=== PATIENT | female | born 1945 | race Caucasian/White ===

== ENCOUNTER 2016-11-24 08:55 | Inpatient (IN) | payer MEDICARE, MEDICAID ==
[~2016-11-24 08:55] MED LIST: Lactated Ringers 1,000 ML IV SCH; Lidocaine 1%/Sod Bicarbonate in NS 8.4% 1 ML Syringe PRN; Sodium Chloride 0.9% 10 ML Syringe FLUSH PRN
[2016-11-24] MEDS ORDERED: fentaNYL 250 MCG/5 ML SDV ONE (10:54)
[2016-11-24] MEDS ORDERED: Propofol 200 MG/20 ML SDV ONE (10:54)
[2016-11-24] MEDS ORDERED: Lidocaine 1% 6 ML ONE (10:55)
[2016-11-24] MEDS ORDERED: ceFAZolin 1 GM Vial ONE (10:56)
[2016-11-24] MEDS ORDERED: ePHEDrine/Normal Saline 25 MG/5 ML Syringe ONE ×3 (11:25→12:31)
[2016-11-24] MEDS: Bupivacaine 0.25% 30 ML SDV ONE ×2 (11:52→12:32)
--- NOTE | 2016-11-24 11:52 | PCM.PREANE ---
Preanesthetic Assessment - Procedure Proposed Procedure: Right total knee arthroplasty - Anesthesia/Transfusion/Family Hx Anesthesia History: Prior Anesthesia Without Reaction Transfusion History: No Prior Transfusion(s) - Review of Systems General: No Symptoms Pulmonary: No Symptoms Cardiovascular: No Symptoms Gastrointestinal: No symptoms Neurological: Difficulty Walking (due to knee pain) Other: Reports: None - Physical Assessment NPO Status Date: 11/23/16 NPO Status Time: 18:00 O2 Sat by Pulse Oximetry: 97 Respiratory Rate: 16 Vital Signs: Last Vital Signs Temp 35.9 C 11/24/16 09:00 Pulse 59 L 11/24/16 09:00 Resp 16 11/24/16 09:00 BP 136/71 11/24/16 09:00 Pulse Ox 97 11/24/16 09:00 Height: 1.47 m Weight: 70.307 kg ASA Class: 2 Mental Status: Alert & Oriented x3 Airway Class: Mallampati = 3 Dentition: Reports: Edentulous Thyro-Mental Finger Breadths: 3 Mouth Opening Finger Breadths: 3 ROM/Head Extension: Full Lungs: Clear to auscultation, Normal respiratory effort Cardiovascular: Regular Rate, Regular Rhythm, No Murmurs - Lab Values: Laboratory Last Values MRSA (PCR) Negative 11/12/16 14:40 CMP, Coags, and BMP all essentially normal - Imaging/EKG Impressions: EKG sinus rhythm with Left axis. possible LVH CXR - enlarged cardiac silhouette, no acute abnormality - Allergies Allergies/Adverse Reactions: Allergies Allergy/AdvReac Type Severity Reaction Status Date / Time No Known Allergies Allergy Verified 11/20/16 16:23 - Anesthesia Plan Beta Garry: Atenolol Med Last Dose Date: 11/24/16 Med Last Dose Time: 07:00 - Acknowledgements Anesthesia Type Planned: General Anesthesia Pt an Appropriate Candidate for the Planned Anesthesia: Yes Alternatives and Risks of Anesthesia Discussed w Pt/Guardian: Yes Pt/Guardian Understands and Agrees with Anesthesia Plan: Yes PreAnesthesia Questionnaire HEENT History: Reports: Allergic Rhinitis, Impaired Vision, Other (See Below) Other HEENT History: wears glasses, dentures Cardiovascular History: Reports: Hypertension Respiratory History: Reports: None Gastrointestinal History: Reports: None CAFETERIA CLERK History: Reports: None Musculoskeletal History: Reports: Arthritis, Osteoarthritis, Osteoporosis, Other (See Below) Other Musculoskeletal History: bilateral shoulder pain, osteopenia Neurological History: Reports: None Psychiatric History: Reports: None Endocrine/Metabolic History: Reports: Obesity/BMI 30+, Other (See Below) Other Endocrine/Metabolic History: pre-diabetes Hematologic History: Reports: None Immunologic History: Reports: None Oncologic (Cancer) History: Reports: None Dermatologic History: Reports: None - Past Surgical History Head Surgeries/Procedures: Reports: None HEENT Surgical History: Reports: Other (See Below) Other HEENT Surgeries/Procedures: eye lift GI Surgical History: Reports: None Female Surgical History: Reports: Section, Hysterectomy Oncologic Surgical History: Reports: None - SUBSTANCE USE Smoking Status *Q: Former Smoker (Quit 40 yrs ago after 1 py hx) Tobacco Use Within Last Twelve Months: No Second Hand Smoke Exposure: No Days Per Week of Alcohol Use: 0 (reports rare consumption of alcohol) Recreational Drug Use History: No - HOME MEDS Home Medications: Home Meds Atenolol [Atenolol] 25 mg PO BID 11/20/16 [History] Hydrochlorothiazide 25 mg PO DAILY 11/20/16 [History] Hydrocodone/Acetaminophen [Hydrocodon-Acetaminophen 5-325] 1 tab PO TID PRN [History] Lisinopril [Zestril] 40 mg PO DAILY 11/20/16 [History] Naproxen [Naprosyn] 375 mg PO Q12H PRN 11/20/16 [History] - CURRENT (IN HOUSE) MEDS Current Meds: Current Medications Aspirin (Ecotrin) 325 mg PO BID RAZA Bisacodyl (Dulcolax) 5 mg PO DAILY PRN PRN Reason: Constipation Cyclobenzaprine HCl (Flexeril) 10 mg PO TID PRN PRN Reason: Spasms Diphenhydramine HCl (Benadryl) 25 mg IVPUSH Q4H PRN PRN Reason: Nausea Docusate Sodium (Colace) 100 mg PO BID RAZA Famotidine (Pepcid) 20 mg PO BID RAZA Lactated Ringer's (Ringers, Lactated) 1,000 mls @ 125 mls/hr IV ASDIRECTED RAZA Stop: 11/24/16 23:00 Last Admin: 11/24/16 09:35 Dose: 125 mls/hr Cefazolin Sodium/Dextrose 2 gm (/ Premix) 50 mls @ 100 mls/hr IV Q8H RAZA Stop: 11/25/16 10:29 Lidocaine/Sodium Bicarbonate (Buffered Lidocaine 1% In Ns 8.4%) 0.25 ml .XX ONETIME PRN PRN Reason: Prior to IV Start Stop: 11/24/16 18:00 Last Admin: 11/24/16 09:34 Dose: 0.25 ml Magnesium Hydroxide (Milk Of Magnesia) 30 ml PO BID PRN PRN Reason: Constipation Morphine Sulfate (Morphine) 2 mg IVPUSH Q2H PRN PRN Reason: Breakthrough Pain Multivitamins (Thera) 1 each PO WITHBREAKFAST [facility] Naloxone HCl (Narcan) 0.1 mg IVPUSH Q5M PRN PRN Reason: Oversedation Stop: 11/24/16 13:16 Ondansetron HCl (Zofran) 4 mg IVPUSH Q6H PRN PRN Reason: Nausea/Vomiting Oxycodone/Acetaminophen (Percocet 325-5 Mg) 1 - 2 tab PO Q4H PRN PRN Reason: Pain Senna (Senna) 8.6 mg PO BID PRN PRN Reason: Constipation Sodium Chloride (Saline Flush) 10 ml FLUSH ASDIRECTED PRN PRN Reason: Keep Vein Open Stop: 11/24/16 18:00 Discontinued Medications Bupivacaine HCl (Marcaine 0.25%) Confirm Administered Dose 30 ml .ROUTE .STK- MED ONE Stop: 11/24/16 09:33 Cefazolin Sodium (Ancef) Confirm Administered Dose 2 gm .ROUTE .STK-MED ONE Stop: 11/24/16 09:33 Cefazolin Sodium (Ancef) Confirm Administered Dose 2 gm .ROUTE .STK-MED ONE Stop: 11/24/16 10:57 Morphine Sulfate 8 mg/Epinephrine HCl 0.3 mg/Cefuroxime Sodium 750 mg/Ketorolac Tromethamine 30 mg/Sodium Chloride 27.9 ml 0 mg .XX ONETIME ONE Stop: 11/24/16 10:31 Ephedrine Sulfate (Ephedrine In Ns) Confirm Administered Dose 25 mg .ROUTE .STK- MED ONE Stop: 11/24/16 11:26 Ephedrine Sulfate (Ephedrine In Ns) Confirm Administered Dose 25 mg .ROUTE .STK- MED ONE Stop: 11/24/16 11:33 Fentanyl (Sublimaze) Confirm Administered Dose 250 mcg .ROUTE .STK-MED ONE Stop: 11/24/16 10:55 Lidocaine HCl (Xylocaine-Mpf 1%) Confirm Administered Dose 6 mls @ as directed .ROUTE .STK-MED ONE Stop: 11/24/16 10:56 Iodine (Iodine 2% Mild Tincture) Confirm Administered Dose 30 ml .ROUTE .STK- MED ONE Stop: 11/24/16 09:33 Propofol (Diprivan 20 Ml) Confirm Administered Dose 200 mg .ROUTE .STK-MED ONE Stop: 11/24/16 10:55 Tranexamic Acid (Cyklokapron) Confirm Administered Dose 1,000 mg .ROUTE .STK- MED ONE Stop: 11/24/16 09:33
[2016-11-24] MEDS: ceFAZolin 1 GM Vial ONE ×2 (11:53→12:29)
[2016-11-24] MEDS: Iodine/Sodium Iodide 2% Tincture 30 ML Bottle ONE ×2 (11:54→12:28)
[2016-11-24] MEDS ORDERED: HYDROmorphone 1 MG/ML Syringe ONE (11:54)
[2016-11-24] MEDS: Morphine 8 MG, EPINEPHrine 0.3 MG, Cefuroxime 750 MG, Ketorolac 30 MG, Sodium Chloride ... ONE ×10 (11:57→12:31)
[2016-11-24] MEDS ORDERED: Neostigmine Methylsulfate 1 MG/ML 5 ML Syringe ONE (12:36)
[2016-11-24] MEDS ORDERED: Ondansetron 4 MG/2 ML SDV ONE (12:37)
[2016-11-24] MEDS ORDERED: Ketamine 500 mg/10 ML MDV ONE (12:38)
[2016-11-24] MEDS ORDERED: Ondansetron 4 MG/2 ML SDV IVPUSH PRN ×2 (13:00→13:35)
[2016-11-24] MEDS ORDERED: Naloxone 0.4 MG/ML SDV IVPUSH PRN (13:00)
[2016-11-24] MEDS ORDERED: Sennosides 8.6 MG Tab PO PRN (13:00)
[2016-11-24] MEDS ORDERED: diphenhydrAMINE 50 MG/ML SDV IVPUSH PRN ×2 (13:00→13:35)
[2016-11-24] MEDS ORDERED: Magnesium Hydroxide 400 MG/5 ML Susp 30 ML Cup PO PRN (13:00)
[2016-11-24] MEDS ORDERED: Bisacodyl 5 MG Tab PO PRN (13:00)
[2016-11-24] MEDS ORDERED: Albuterol 6.7 GM Inhaler INH ONE (13:10)
[2016-11-24] MEDS ORDERED: Ketorolac 30 MG/ML SDV ONE (13:19)
[2016-11-24] MEDS ORDERED: fentaNYL 100 MCG/2 ML SDV ONE ×2 (13:26→13:35)
[2016-11-24] MEDS: fentaNYL 100 MCG/2 ML SDV IVPUSH PRN ×2 (13:31→13:41)
--- NOTE | 2016-11-24 13:38 | PCM.POSTAN ---
POST ANESTHESIA ASSESSMENT - MENTAL STATUS Mental Status: other (drowsy) - VITAL SIGNS Pulse Rate: 74 SaO2: 98 Resp Rate: 10 Blood Pressure: 121/56 Temperature: 98.4 C - RESPIRATORY Respiratory Status: respiratory rate WNL, airway patent, O2 saturation stable - CARDIOVASCULAR CV Status: pulse rate WNL, blood pressure stable - GASTROINTESTINAL GI Status: no symptoms - PAIN Pain Score: 5 (being managed by Rns) - POST OP HYDRATION Hydration Status: adequate & stable
[2016-11-24] MEDS ORDERED: Lactated Ringers 3,000 ML ONE (13:50)
--- NOTE | 2016-11-24 14:06 | CR ---
Right knee: AP and lateral views of the right knee were obtained. Comparison: Previous right knee study of 10/01/16. Knee prosthesis is seen. Components are aligned. Underlying bony structures are intact. Soft tissue air is noted from the surgical procedure. Air also seen within the joint compatible with the surgical procedure. Impression: 1. Satisfactory appearance of recently placed right knee prosthesis. Diagnostic code #2
[2016-11-24] MEDS ORDERED: HYDROmorphone 0.5 MG/0.5 ML Syringe IVPUSH PRN (14:30)
[2016-11-24] MEDS: Acetaminophen/oxyCODONE 325-5 MG Tab PO PRN ×2 (15:31→20:23)
--- NOTE | 2016-11-24 16:17 | PCM.CONSN ---
- General Info Date of Service: 11/24/16 Admission Dx/Problem (Free Text): 71 year old female S/P right total knee arthroplasty; previously cortisone injections were used to address her bilateral knee discomfort. The patient was seen by ortho for persistent biateral knee pain. The hospitalist service has been asked to provide consultation for medical management. Functional Status: Reports: pain controlled, urinating - Review of Systems General: Reports: No Symptoms HEENT: Reports: no symptoms Pulmonary: Reports: no symptoms Cardiovascular: Reports: No Symptoms Gastrointestinal: Reports: No symptoms Genitourinary: Reports: no symptoms Musculoskeletal: Reports: no symptoms Skin: Reports: no symptoms Neurological: Reports: No Symptoms Psychiatric: Reports: no symptoms - Patient Data Vitals - most recent: Last Vital Signs Temp 36.4 C 11/24/16 14:23 Pulse 55 L 11/24/16 16:02 Resp 13 11/24/16 14:23 BP 124/56 L 11/24/16 16:02 Pulse Ox 96 11/24/16 16:02 Weight - most recent: 74.435 kg I&O - last 24 hours: Intake & Output 11/24/16 11/24/16 11/24/16 06:59 14:59 22:59 Intake Total 200 Balance 200 Med Orders - Current: Current Medications Aspirin (Ecotrin) 325 mg PO BID RAZA Atenolol (Tenormin) 25 mg PO BID RAZA Bisacodyl (Dulcolax) 5 mg PO DAILY PRN PRN Reason: Constipation Cyclobenzaprine HCl (Flexeril) 10 mg PO TID PRN PRN Reason: Spasms Diphenhydramine HCl (Benadryl) 25 mg IVPUSH Q4H PRN PRN Reason: Nausea Diphenhydramine HCl (Benadryl) 25 mg IVPUSH Q6H PRN PRN Reason: pruritis Docusate Sodium (Colace) 100 mg PO BID RAZA Famotidine (Pepcid) 20 mg PO BID RAZA Fentanyl (Sublimaze) 50 mcg IVPUSH Q5M PRN PRN Reason: Pain Stop: 11/24/16 18:00 Last Admin: 11/24/16 13:41 Dose: 50 mcg Hydrochlorothiazide (Hydrochlorothiazide) 25 mg PO DAILY RAZA Lactated Ringer's (Ringers, Lactated) 1,000 mls @ 125 mls/hr IV ASDIRECTED [facility] Stop: 11/24/16 23:00 Last Admin: 11/24/16 09:35 Dose: 125 mls/hr Cefazolin Sodium/Dextrose 2 gm (/ Premix) 50 mls @ 100 mls/hr IV Q8H [facility] Stop: 11/25/16 10:29 Lisinopril (Prinivil) 40 mg PO DAILY [facility] Magnesium Hydroxide (Milk Of Magnesia) 30 ml PO BID PRN PRN Reason: Constipation Morphine Sulfate (Morphine) 2 mg IVPUSH Q2H PRN PRN Reason: Breakthrough Pain Multivitamins (Thera) 1 each PO WITHBREAKFAST [facility] Ondansetron HCl (Zofran) 4 mg IVPUSH Q6H PRN PRN Reason: Nausea/Vomiting Ondansetron HCl (Zofran) 4 mg IVPUSH ONETIME PRN PRN Reason: Nausea/Vomiting Stop: 11/24/16 18:00 Oxycodone/Acetaminophen (Percocet 325-5 Mg) 1 - 2 tab PO Q4H PRN PRN Reason: Pain Last Admin: 11/24/16 15:31 Dose: 2 tab Senna (Senna) 8.6 mg PO BID PRN PRN Reason: Constipation Sodium Chloride (Saline Flush) 10 ml FLUSH ASDIRECTED PRN PRN Reason: Keep Vein Open Stop: 11/24/16 18:00 Discontinued Medications Albuterol (Proventil Hfa) Confirm Administered Dose 6.7 gm INH .STK-MED ONE Stop: 11/24/16 13:11 Bupivacaine HCl (Marcaine 0.25%) Confirm Administered Dose 30 ml .ROUTE .STK- MED ONE Stop: 11/24/16 09:33 Last Admin: 11/24/16 12:32 Dose: 30 ml Cefazolin Sodium (Ancef) Confirm Administered Dose 2 gm .ROUTE .STK-MED ONE Stop: 11/24/16 09:33 Last Admin: 11/24/16 12:29 Dose: 2 gm Cefazolin Sodium (Ancef) Confirm Administered Dose 2 gm .ROUTE .STK-MED ONE Stop: 11/24/16 10:57 Morphine Sulfate 8 mg/Epinephrine HCl 0.3 mg/Cefuroxime Sodium 750 mg/Ketorolac Tromethamine 30 mg/Sodium Chloride 27.9 ml 0 mg .XX ONETIME ONE Stop: 11/24/16 10:31 Last Admin: 11/24/16 12:31 Dose: 788.3 mg Ephedrine Sulfate (Ephedrine In Ns) Confirm Administered Dose 25 mg .ROUTE .STK- MED ONE Stop: 11/24/16 11:26 Ephedrine Sulfate (Ephedrine In Ns) Confirm Administered Dose 25 mg .ROUTE .STK- MED ONE Stop: 11/24/16 11:33 Ephedrine Sulfate (Ephedrine In Ns) Confirm Administered Dose 50 mg .ROUTE .STK- MED ONE Stop: 11/24/16 12:32 Fentanyl (Sublimaze) Confirm Administered Dose 250 mcg .ROUTE .STK-MED ONE Stop: 11/24/16 10:55 Fentanyl (Sublimaze) Confirm Administered Dose 100 mcg .ROUTE .STK-MED ONE Stop: 11/24/16 13:27 Fentanyl (Sublimaze) Confirm Administered Dose 100 mcg .ROUTE .STK-MED ONE Stop: 11/24/16 13:36 Glycopyrrolate () Confirm Administered Dose 1 mg .ROUTE .STK-MED ONE Stop: 11/24/16 12:37 Hydromorphone HCl (Dilaudid) Confirm Administered Dose 1 mg .ROUTE .STK-MED ONE Stop: 11/24/16 11:55 Hydromorphone HCl (Dilaudid) 0.5 mg IVPUSH Q15M PRN PRN Reason: severe pain Stop: 11/24/16 14:46 Last Admin: 11/24/16 14:05 Dose: 0.5 mg Lidocaine HCl (Xylocaine-Mpf 1%) Confirm Administered Dose 6 mls @ as directed .ROUTE .STK-MED ONE Stop: 11/24/16 10:56 Lactated Ringer's (Ringers, Lactated) Confirm Administered Dose 3,000 mls @ as directed .ROUTE .STK-MED ONE Stop: 11/24/16 13:51 Iodine (Iodine 2% Mild Tincture) Confirm Administered Dose 30 ml .ROUTE .STK- MED ONE Stop: 11/24/16 09:33 Last Admin: 11/24/16 12:28 Dose: 30 ml Ketamine HCl (Ketalar) Confirm Administered Dose 500 mg .ROUTE .STK-MED ONE Stop: 11/24/16 12:39 Ketorolac Tromethamine (Toradol) Confirm Administered Dose 30 mg .ROUTE .STK- MED ONE Stop: 11/24/16 13:20 Lidocaine/Sodium Bicarbonate (Buffered Lidocaine 1% In Ns 8.4%) 0.25 ml .XX ONETIME PRN PRN Reason: Prior to IV Start Stop: 11/24/16 18:00 Last Admin: 11/24/16 09:34 Dose: 0.25 ml Naloxone HCl (Narcan) 0.1 mg IVPUSH Q5M PRN PRN Reason: Oversedation Stop: 11/24/16 13:16 Neostigmine Methylsulfate (Neostigmine) Confirm Administered Dose 5 mg .ROUTE .STK-MED ONE Stop: 11/24/16 12:37 Ondansetron HCl (Zofran) Confirm Administered Dose 4 mg .ROUTE .STK-MED ONE Stop: 11/24/16 12:38 Propofol (Diprivan 20 Ml) Confirm Administered Dose 200 mg .ROUTE .STK-MED ONE Stop: 11/24/16 10:55 Tranexamic Acid (Cyklokapron) Confirm Administered Dose 1,000 mg .ROUTE .STK- MED ONE Stop: 11/24/16 09:33 Last Admin: 11/24/16 12:36 Dose: 1,000 mg - Exam Quality Assessment: urine catheter, DVT prophylaxis General: alert, oriented, cooperative, no acute distress HEENT: Pupils equal, Pupils reactive, EOMI Neck: supple, trachea midline Lungs: Normal respiratory effort, Decreased breath sounds Cardiovascular: Regular Rate, Regular Rhythm Abdomen: bowel sounds present, soft, no tenderness, no distension (Female) Exam: Deferred Back Exam: Normal Inspection Extremities: normal pulses Skin: warm Neurological: no new focal deficit Psy/Mental Status: alert, normal affect, normal mood Consult PN Assessment/Plan POD#: 0 Procedures: Procedures ASSAY OF FERRITIN (11/06/16) ASSAY OF PREALBUMIN (11/06/16) ASSAY OF SERUM ALBUMIN (11/06/16) ASSAY THYROID STIM HORMONE (10/01/16) CHEST X-RAY 2VW FRONTAL&LATL (11/06/16) COMPLETE CBC W/AUTO DIFF WBC (11/06/16) DXA BONE DENSITY AXIAL (10/16/16) GLYCOSYLATED HEMOGLOBIN TEST (10/01/16) LIPID PANEL (10/01/16) METABOLIC PANEL TOTAL CA (11/06/16) PROTHROMBIN TIME (11/06/16) ROUTINE VENIPUNCTURE (11/06/16) THROMBOPLASTIN TIME PARTIAL (11/06/16) VITAMIN D 25 HYDROXY (11/06/16) X-RAY EXAM KNEE 4 OR MORE (10/01/16) (1) Osteoarthritis SNOMED Code(s): 180386501 Code(s): M19.90 - UNSPECIFIED OSTEOARTHRITIS, UNSPECIFIED SITE Current Visit: Yes (2) Obesity (BMI 30-39.9) SNOMED Code(s): 333482935, 880423770 Code(s): E66.9 - OBESITY, UNSPECIFIED Current Visit: Yes (3) Hypertension SNOMED Code(s): 33789350 Code(s): I10 - ESSENTIAL (PRIMARY) HYPERTENSION Current Visit: Yes Problem List Initiated/Reviewed/Updated: Yes Plan: Impression: Right knee osteoarthritis s/p right total knee arthroplasty, POD 0 HTN Obesity, BMI 34.3 Plan: Daily Labs Home meds Pain mgt PT/OT/SW consults DVT prophylaxis
[2016-11-24] MEDS: Morphine 2 MG/ML Syringe IVPUSH PRN (17:29)
[2016-11-24] MEDS: ceFAZolin 2 GM in Premix Bag 1 BAG IV SCH (17:38)
[2016-11-24] MEDS: Docusate Sodium 100 MG Cap PO SCH (20:22)
[2016-11-24] MEDS: Famotidine 20 MG Tab PO SCH (20:22)
[2016-11-24] MEDS: Atenolol 25 MG Tab PO SCH (20:26)
--- NOTE | 2016-11-24 21:55 | PCM.OPNOTE ---
- General Post-Op/Procedure Note Date of Surgery/Procedure: 11/24/16 Operative Procedure(s): right total knee arthroplasty Pre Op Diagnosis: right knee osteoarthrosis Post-Op Diagnosis: Same Anesthesia Technique: General ET tube, Local Primary Surgeon: Ab Chapa Anesthesia Provider: Ann Marie Broderick [employer] Boards Inspector: Romi Licona [employer] Boards Inspector: Willow Moore EBL in mLs: 150 Complications: None Condition: Good Free Text/Narrative:: Intake & Output 11/24/16 11/24/16 11/24/16 06:59 14:59 22:59 Intake Total 200 1420 Balance 200 1420
--- NOTE | 2016-11-24 22:28 | OR ---
DATE OF OPERATION: 11/24/2016 SURGEON: Ab Chapa MD OPERATION PERFORMED: Right total knee arthroplasty. PREOPERATIVE DIAGNOSIS: Right knee osteoarthrosis. POSTOPERATIVE DIAGNOSIS: Right knee osteoarthrosis. ANESTHESIA: Local MAC with spinal. ANESTHESIA PROVIDER: Ann Marie Broderick. ASSISTANTS: Romi Licona PA-C and Willow Moore LPN. ESTIMATED BLOOD LOSS: 150 mL. COMPLICATIONS: None. CONDITION: Stable. IMPLANTS: 1. Woodworth size 3 PS femur. 2. Woodworth size 2 universal tibial base plate. 3. Osmany size 2 9-mm PS X3 polyethylene. 4. 27 x 8 mm concentric Woodworth patella. DESCRIPTION OF PROCEDURE: The patient was identified in the preop holding area. Proper site was marked and identified by the surgeon. The patient was taken back to the operating theater. After adequate anesthesia, the patient's right lower extremity had a nonsterile tourniquet applied and it was then sterilely prepped and draped in the usual sterile fashion. OR timeout was performed. The patient received 2 g IV Ancef. At this time, right lower extremity was exsanguinated. Tourniquet was insufflated to 300 mmHg. Standard medial parapatellar incision was made. Medial parapatellar arthrotomy was created. Deep fibers of the MCL were raised and anterior fat pad was resected. At this time, attention was turned to the patella. Patella measured 21, it was resected to a 13 for a 27 x 8 mm patella. Drill holes were then drilled and found to be in adequate position. The drill was then drilled in the distal femur and the intramedullary distal femoral cutting guide was then placed. 8 mm was resected off the distal femur and was found to be an adequate resection. Sizing guide was placed. It was found to be a size 3 PS femur that was shown on the implant record at the beginning of this dictation. The drill holes were drilled for the epicondylar axis using Whitesides line and epicondyles as reference. At this time, the 4-in-1 cutting block was placed. An anterior posterior and anterior and posterior chamfer cuts were then completed. The correct size box cut was then placed and the box cut was completed and found to be an adequate resection. Attention was turned to the tibia. The posterior medial lateral retractors were placed. The extramedullary tibial guide was placed. It was placed in the old footprint of the ACL. It was aligned with the center of the ankle and 0 degrees of slope, 9 mm was then resected off the unaffected lateral side. There was found to be an acceptable reduction. At this time, posterior osteophytes were removed along with medial and lateral meniscus. A trial implant was placed with a correct sized tibia that was mentioned at the beginning of the dictation. A 9-mm trial spacer was trialed and a 9-mm X3 polyethylene was then placed. The patient's knee was brought through range of motion. The patella was tracking centrally and was stable to varus and valgus stress. Alignment was found to be roughly at 0 degrees. At this time, cement was mixed on the back table. The tibia was stamped and drilled in proper rotation. All cut surfaces were irrigated with pulse lavage irrigation with Ancef and then completely dried. Once this was completed, then the cement was ready. The universal tibial base plate was cemented in place. Next, the size 3 PS femur cemented into place and the 9-mm X3 polyethylene was placed. The patient's knee was brought into full extension. Excess cement was removed. The patella was then cemented in place at this time. Tourniquet was deflated. One liter dilute Betadine solution was irrigated through the knee along with 3 L of pulse lavage irrigation with Ancef. Periarticular injection was then completed. The patient's knee was brought through a range of motion. Once the cement had time to set up and it was found to be stable to varus valgus stress, the patella was tracking centrally with full range of motion. At this time, a #2 barbed suture was used for closure of the medial parapatellar arthrotomy. Topical tranexamic acid was placed. 2-0 Vicryl was used subcutaneously, a running 3-0 Monocryl was used subcuticularly. The patient tolerated the procedure well and was sent to the PACU in stable condition. MMADALID /[id number]
[2016-11-25] MEDS: Morphine 2 MG/ML Syringe IVPUSH PRN
[2016-11-25] MEDS: ceFAZolin 2 GM in Premix Bag 1 BAG IV SCH ×2 (02:25→09:20)
[2016-11-25] MEDS: Acetaminophen/oxyCODONE 325-5 MG Tab PO PRN ×5 (04:10→20:39)
[2016-11-25] MEDS: Multivitamins,Therapeutic Tab PO SCH (06:26)
--- NOTE | 2016-11-25 08:23 | PCM48HPAN ---
Post Anesthesia Note - EVALUATION WITHIN 48HRS OF ANESTHETIC Vital Signs in Normal Range: Yes Patient Participated in Evaluation: Yes Respiratory Function Stable: Yes Airway Patent: Yes Cardiovascular Function Stable: Yes Hydration Status Stable: Yes Pain Control Satisfactory: Yes Nausea and Vomiting Control Satisfactory: Yes Mental Status Recovered: Yes - COMMENTS/OBSERVATIONS Free Text/Narrative:: Patient difficult to asses due to [place] speaking only but denied and back pain , headaches. Said she is able to ambulate in her room. Just c/o some tolerable knee pain.
[2016-11-25] MEDS: Aspirin 325 MG Tab.EC PO SCH ×2 (09:18→20:32)
[2016-11-25] MEDS: Docusate Sodium 100 MG Cap PO SCH ×2 (09:19→20:32)
[2016-11-25] MEDS: Lisinopril 20 MG Tab PO SCH (09:19)
[2016-11-25] MEDS: Atenolol 25 MG Tab PO SCH ×3 (09:19→20:42)
[2016-11-25] MEDS: Hydrochlorothiazide 25 MG Tab PO SCH (09:19)
[2016-11-25] MEDS: Famotidine 20 MG Tab PO SCH (09:25)
[2016-11-25] MEDS ORDERED: Potassium Chloride 20 MEQ Tab.ER PO ONE (09:36)
--- NOTE | 2016-11-25 09:47 | PCM.PN ---
- General Info Date of Service: 11/25/16 Admission Dx/Problem (Free Text): S/P Rt TKA, with Dr. Chapa, POD #1 Doing well, pain controlled, no nausea VSS Hgb 10.8 Working with PT/OT- doing well. Functional Status: Reports: pain controlled, tolerating diet, ambulating, urinating. Denies: new symptoms - Review of Systems General: Reports: No Symptoms HEENT: Reports: no symptoms Pulmonary: Reports: no symptoms Cardiovascular: Reports: No Symptoms Gastrointestinal: Reports: No symptoms Genitourinary: Reports: no symptoms Musculoskeletal: Reports: leg pain Skin: Reports: no symptoms Neurological: Reports: No Symptoms Psychiatric: Reports: no symptoms - Patient Data Vitals - most recent: Last Vital Signs Temp 98.4 F 11/25/16 08:46 Pulse 74 11/25/16 09:19 Resp 20 11/25/16 08:46 BP 102/54 L 11/25/16 09:19 Pulse Ox 92 L 11/25/16 08:46 Weight - most recent: 163 lb 8 oz I&O - last 24 hours: Intake & Output 11/24/16 11/25/16 11/25/16 22:59 06:59 14:59 Intake Total 1420 900 Output Total 400 250 Balance 1420 500 -250 Lab Results last 24 hrs: Laboratory Results - last 24 hr 11/25/16 11/25/16 Range/Units 06:21 06:21 WBC 9.80 (3.98-10.04) K/mm3 RBC 3.91 L (3.98-5.22) M/mm3 Hgb 10.8 L (11.2-15.7) gm/L Hct 33.2 L (34.1-44.9) % MCV 84.9 (79.4-94.8) fl MCH 27.6 (25.6-32.2) pg MCHC 32.5 (32.2-35.5) g/dl RDW Std Deviation 44.3 (36.4-46.3) fL Plt Count 213 (182-369) K/mm3 MPV 10.1 (9.4-12.3) fl Neut % (Auto) 72.9 H (34.0-71.1) % Lymph % (Auto) 15.2 L (19.3-51.7) % [place] % (Auto) 9.6 (4.7-12.5) % Eos % (Auto) 1.8 (0.7-5.8) Baso % (Auto) 0.3 (0.1-1.2) % Neut # (Auto) 7.14 H (1.56-6.13) K/mm3 Lymph # (Auto) 1.49 (1.18-3.74) K/mm3 [place] # (Auto) 0.94 H (0.24-0.36) K/mm3 Eos # (Auto) 0.18 (0.04-0.36) K/mm3 Baso # (Auto) 0.03 (0.01-0.08) K/mm3 Sodium 141 (136-145) mEq/L Potassium 3.2 L (3.5-5.1) mEq/L Chloride 104 (98-107) mEq/L Carbon Dioxide 28 (21-32) mEq/L Anion Gap 12.2 (5-15) BUN 19 H (7-18) mg/dL Creatinine 1.0 (0.55-1.02) mg/dL Est Cr Clr Drug Dosing 37.60 mL/min Estimated GFR (MDRD) 55 (>60) mL/min BUN/Creatinine Ratio 19.0 H (14-18) Glucose 135 H (80-115) mg/dL Calcium 8.5 (8.5-10.1) mg/dL Total Bilirubin 0.4 (0.2-1.0) mg/dL AST 28 (15-37) U/L ALT 17 (14-59) U/L Alkaline Phosphatase 57 (46-116) U/L Total Protein 6.6 (6.4-8.2) g/dl Albumin 2.9 L (3.4-5.0) g/dl Globulin 3.7 gm/dL Albumin/Globulin Ratio 0.8 L (1-2) Med Orders - Current: Current Medications Aspirin (Ecotrin) 325 mg PO BID [facility] Last Admin: 11/25/16 09:18 Dose: 325 mg Atenolol (Tenormin) 25 mg PO BID [facility] Last Admin: 11/25/16 09:19 Dose: 25 mg Bisacodyl (Dulcolax) 5 mg PO DAILY PRN PRN Reason: Constipation Cyclobenzaprine HCl (Flexeril) 10 mg PO TID PRN PRN Reason: Spasms Diphenhydramine HCl (Benadryl) 25 mg IVPUSH Q4H PRN PRN Reason: Nausea Docusate Sodium (Colace) 100 mg PO BID [facility] Last Admin: 11/25/16 09:19 Dose: 100 mg Famotidine (Pepcid) 20 mg PO DAILY [facility] Hydrochlorothiazide (Hydrochlorothiazide) 25 mg PO DAILY [facility] Last Admin: 11/25/16 09:19 Dose: 25 mg Cefazolin Sodium/Dextrose 2 gm (/ Premix) 50 mls @ 100 mls/hr IV Q8H [facility] Stop: 11/25/16 10:29 Last Admin: 11/25/16 09:20 Dose: 100 mls/hr Lisinopril (Prinivil) 40 mg PO DAILY [facility] Last Admin: 11/25/16 09:19 Dose: 40 mg Magnesium Hydroxide (Milk Of Magnesia) 30 ml PO BID PRN PRN Reason: Constipation Morphine Sulfate (Morphine) 2 mg IVPUSH Q2H PRN PRN Reason: Breakthrough Pain Last Admin: 11/24/16 17:29 Dose: 2 mg Multivitamins (Thera) 1 each PO WITHBREAKFAST [facility] Last Admin: 11/25/16 06:26 Dose: 1 each Ondansetron HCl (Zofran) 4 mg IVPUSH Q6H PRN PRN Reason: Nausea/Vomiting Oxycodone/Acetaminophen (Percocet 325-5 Mg) 1 - 2 tab PO Q4H PRN PRN Reason: Pain Last Admin: 11/25/16 09:23 Dose: 2 tab Senna (Senna) 8.6 mg PO BID PRN PRN Reason: Constipation Discontinued Medications Albuterol (Proventil Hfa) Confirm Administered Dose 6.7 gm INH .STK-MED ONE Stop: 11/24/16 13:11 Bupivacaine HCl (Marcaine 0.25%) Confirm Administered Dose 30 ml .ROUTE .STK- MED ONE Stop: 11/24/16 09:33 Last Admin: 11/24/16 12:32 Dose: 30 ml Cefazolin Sodium (Ancef) Confirm Administered Dose 2 gm .ROUTE .STK-MED ONE Stop: 11/24/16 09:33 Last Admin: 11/24/16 12:29 Dose: 2 gm Cefazolin Sodium (Ancef) Confirm Administered Dose 2 gm .ROUTE .STK-MED ONE Stop: 11/24/16 10:57 Morphine Sulfate 8 mg/Epinephrine HCl 0.3 mg/Cefuroxime Sodium 750 mg/Ketorolac Tromethamine 30 mg/Sodium Chloride 27.9 ml 0 mg .XX ONETIME ONE Stop: 11/24/16 10:31 Last Admin: 11/24/16 12:31 Dose: 788.3 mg Diphenhydramine HCl (Benadryl) 25 mg IVPUSH Q6H PRN PRN Reason: pruritis Ephedrine Sulfate (Ephedrine In Ns) Confirm Administered Dose 25 mg .ROUTE .STK- MED ONE Stop: 11/24/16 11:26 Ephedrine Sulfate (Ephedrine In Ns) Confirm Administered Dose 25 mg .ROUTE .STK- MED ONE Stop: 11/24/16 11:33 Ephedrine Sulfate (Ephedrine In Ns) Confirm Administered Dose 50 mg .ROUTE .STK- MED ONE Stop: 11/24/16 12:32 Famotidine (Pepcid) 20 mg PO BID [facility] Last Admin: 11/25/16 09:25 Dose: Not Given Fentanyl (Sublimaze) Confirm Administered Dose 250 mcg .ROUTE .STK-MED ONE Stop: 11/24/16 10:55 Fentanyl (Sublimaze) Confirm Administered Dose 100 mcg .ROUTE .STK-MED ONE Stop: 11/24/16 13:27 Last Admin: 11/25/16 07:38 Dose: Not Given Fentanyl (Sublimaze) 50 mcg IVPUSH Q5M PRN PRN Reason: Pain Stop: 11/24/16 18:00 Last Admin: 11/24/16 13:41 Dose: 50 mcg Fentanyl (Sublimaze) Confirm Administered Dose 100 mcg .ROUTE .STK-MED ONE Stop: 11/24/16 13:36 Last Admin: 11/24/16 17:17 Dose: Not Given Glycopyrrolate () Confirm Administered Dose 1 mg .ROUTE .STK-MED ONE Stop: 11/24/16 12:37 Hydromorphone HCl (Dilaudid) Confirm Administered Dose 1 mg .ROUTE .STK-MED ONE Stop: 11/24/16 11:55 Hydromorphone HCl (Dilaudid) 0.5 mg IVPUSH Q15M PRN PRN Reason: severe pain Stop: 11/24/16 14:46 Last Admin: 11/24/16 14:05 Dose: 0.5 mg Lactated Ringer's (Ringers, Lactated) 1,000 mls @ 125 mls/hr IV ASDIRECTED [facility] Stop: 11/24/16 23:00 Last Admin: 11/24/16 09:35 Dose: 125 mls/hr Lidocaine HCl (Xylocaine-Mpf 1%) Confirm Administered Dose 6 mls @ as directed .ROUTE .STK-MED ONE Stop: 11/24/16 10:56 Lactated Ringer's (Ringers, Lactated) Confirm Administered Dose 3,000 mls @ as directed .ROUTE .STK-MED ONE Stop: 11/24/16 13:51 Iodine (Iodine 2% Mild Tincture) Confirm Administered Dose 30 ml .ROUTE .STK- MED ONE Stop: 11/24/16 09:33 Last Admin: 11/24/16 12:28 Dose: 30 ml Ketamine HCl (Ketalar) Confirm Administered Dose 500 mg .ROUTE .STK-MED ONE Stop: 11/24/16 12:39 Ketorolac Tromethamine (Toradol) Confirm Administered Dose 30 mg .ROUTE .STK- MED ONE Stop: 11/24/16 13:20 Lidocaine/Sodium Bicarbonate (Buffered Lidocaine 1% In Ns 8.4%) 0.25 ml .XX ONETIME PRN PRN Reason: Prior to IV Start Stop: 11/24/16 18:00 Last Admin: 11/24/16 09:34 Dose: 0.25 ml Naloxone HCl (Narcan) 0.1 mg IVPUSH Q5M PRN PRN Reason: Oversedation Stop: 11/24/16 13:16 Neostigmine Methylsulfate (Neostigmine) Confirm Administered Dose 5 mg .ROUTE .STK-MED ONE Stop: 11/24/16 12:37 Ondansetron HCl (Zofran) Confirm Administered Dose 4 mg .ROUTE .STK-MED ONE Stop: 11/24/16 12:38 Ondansetron HCl (Zofran) 4 mg IVPUSH ONETIME PRN PRN Reason: Nausea/Vomiting Stop: 11/24/16 18:00 Potassium Chloride (Klor-Con M20) 40 meq PO ONETIME ONE Stop: 11/25/16 09:37 Propofol (Diprivan 20 Ml) Confirm Administered Dose 200 mg .ROUTE .STK-MED ONE Stop: 11/24/16 10:55 Sodium Chloride (Saline Flush) 10 ml FLUSH ASDIRECTED PRN PRN Reason: Keep Vein Open Stop: 11/24/16 18:00 Tranexamic Acid (Cyklokapron) Confirm Administered Dose 1,000 mg .ROUTE .STK- MED ONE Stop: 11/24/16 09:33 Last Admin: 11/24/16 12:36 Dose: 1,000 mg - Exam Quality Assessment: DVT prophylaxis General: alert, oriented, cooperative, no acute distress HEENT: Pupils equal, Pupils reactive, EOMI, Mucous membr. moist/pink Neck: supple Lungs: Clear to auscultation, Normal respiratory effort Cardiovascular: Regular Rate, Regular Rhythm Abdomen: bowel sounds present, soft, no tenderness, no distension (Female) Exam: Deferred Extremities: no edema, other (teds/SCD's, ice) Peripheral Pulses: 1+: Dorsalis Pedis (L), Dorsalis Pedis (R) Skin: warm, dry Neurological: no new focal deficit Psy/Mental Status: alert, normal affect, normal mood - Problem List & Annotations (1) S/P total knee arthroplasty SNOMED Code(s): 2414391948121, 564240851, 1540372013806 Code(s): Z96.659 - PRESENCE OF UNSPECIFIED ARTIFICIAL KNEE JOINT Status: Acute Priority: High Current Visit: Yes Qualifiers: Laterality: right Qualified Code(s): Z96.651 - Presence of right artificial knee joint (2) Osteoarthritis SNOMED Code(s): 904282605 Code(s): M19.90 - UNSPECIFIED OSTEOARTHRITIS, UNSPECIFIED SITE Status: Acute Priority: High Current Visit: Yes Qualifiers: Osteoarthritis location: knee Osteoarthritis type: primary Laterality: right Qualified Code(s): M17.11 - Unilateral primary osteoarthritis, right knee (3) Hypertension SNOMED Code(s): 19278680 Code(s): I10 - ESSENTIAL (PRIMARY) HYPERTENSION Status: Chronic Priority : Medium Current Visit: No Qualifiers: Hypertension type: essential hypertension Qualified Code(s): I10 - Essential (primary) hypertension (4) Obesity (BMI 30-39.9) SNOMED Code(s): 315244609, 138250408 Code(s): E66.9 - OBESITY, UNSPECIFIED Status: Chronic Priority: Medium Current Visit: No - Problem List Review Problem List Initiated/Reviewed/Updated: Yes - Plan Plan:: I/P: S/P Rt RENEE with Dr. Chapa, POD #1 -Pain under good control at this time -Pain management and DVT prophylax per primary team -IS/RT -PT/OT -Hgb 10.8 -VSS Chronic: HTN- cont home meds Obesity Other: PT/OT CM/SW for assist with DC planning- plans dc home with family DVT/GI prophylax Patient is Full Code status
--- NOTE | 2016-11-25 13:00 | PCM.SURGPN ---
- General Info Date of Service: 11/25/16 POD#: 1 Functional Status: Reports: pain controlled, tolerating diet, ambulating, urinating. Denies: new symptoms - Review of Systems General: Denies: Fever, Chills Musculoskeletal: Reports: other (The pt progressed well with P.T. today.) - Patient Data Vitals - most recent: Last Vital Signs Temp 98.2 F 11/25/16 12:20 Pulse 69 11/25/16 12:20 Resp 15 11/25/16 12:20 BP 106/59 L 11/25/16 12:20 Pulse Ox 93 L 11/25/16 12:20 Weight - most recent: 163 lb 8 oz I&O - last 24 hours: Intake & Output 11/24/16 11/25/16 11/25/16 22:59 06:59 14:59 Intake Total 1420 900 150 Output Total 400 250 Balance 1420 500 -100 Lab Results last 24 hrs: Laboratory Results - last 24 hr 11/25/16 11/25/16 Range/Units 06:21 06:21 WBC 9.80 (3.98-10.04) K/mm3 RBC 3.91 L (3.98-5.22) M/mm3 Hgb 10.8 L (11.2-15.7) gm/L Hct 33.2 L (34.1-44.9) % MCV 84.9 (79.4-94.8) fl MCH 27.6 (25.6-32.2) pg MCHC 32.5 (32.2-35.5) g/dl RDW Std Deviation 44.3 (36.4-46.3) fL Plt Count 213 (182-369) K/mm3 MPV 10.1 (9.4-12.3) fl Neut % (Auto) 72.9 H (34.0-71.1) % Lymph % (Auto) 15.2 L (19.3-51.7) % [place] % (Auto) 9.6 (4.7-12.5) % Eos % (Auto) 1.8 (0.7-5.8) Baso % (Auto) 0.3 (0.1-1.2) % Neut # (Auto) 7.14 H (1.56-6.13) K/mm3 Lymph # (Auto) 1.49 (1.18-3.74) K/mm3 [place] # (Auto) 0.94 H (0.24-0.36) K/mm3 Eos # (Auto) 0.18 (0.04-0.36) K/mm3 Baso # (Auto) 0.03 (0.01-0.08) K/mm3 Sodium 141 (136-145) mEq/L Potassium 3.2 L (3.5-5.1) mEq/L Chloride 104 (98-107) mEq/L Carbon Dioxide 28 (21-32) mEq/L Anion Gap 12.2 (5-15) BUN 19 H (7-18) mg/dL Creatinine 1.0 (0.55-1.02) mg/dL Est Cr Clr Drug Dosing 37.60 mL/min Estimated GFR (MDRD) 55 (>60) mL/min BUN/Creatinine Ratio 19.0 H (14-18) Glucose 135 H (80-115) mg/dL Calcium 8.5 (8.5-10.1) mg/dL Total Bilirubin 0.4 (0.2-1.0) mg/dL AST 28 (15-37) U/L ALT 17 (14-59) U/L Alkaline Phosphatase 57 (46-116) U/L Total Protein 6.6 (6.4-8.2) g/dl Albumin 2.9 L (3.4-5.0) g/dl Globulin 3.7 gm/dL Albumin/Globulin Ratio 0.8 L (1-2) Med Orders - Current: Current Medications Aspirin (Ecotrin) 325 mg PO BID [facility] Last Admin: 11/25/16 09:18 Dose: 325 mg Atenolol (Tenormin) 25 mg PO BID [facility] Last Admin: 11/25/16 09:19 Dose: 25 mg Bisacodyl (Dulcolax) 5 mg PO DAILY PRN PRN Reason: Constipation Cyclobenzaprine HCl (Flexeril) 10 mg PO TID PRN PRN Reason: Spasms Diphenhydramine HCl (Benadryl) 25 mg IVPUSH Q4H PRN PRN Reason: Nausea Docusate Sodium (Colace) 100 mg PO BID [facility] Last Admin: 11/25/16 09:19 Dose: 100 mg Famotidine (Pepcid) 20 mg PO DAILY [facility] Hydrochlorothiazide (Hydrochlorothiazide) 25 mg PO DAILY [facility] Last Admin: 11/25/16 09:19 Dose: 25 mg Lisinopril (Prinivil) 40 mg PO DAILY [facility] Last Admin: 11/25/16 09:19 Dose: 40 mg Magnesium Hydroxide (Milk Of Magnesia) 30 ml PO BID PRN PRN Reason: Constipation Morphine Sulfate (Morphine) 2 mg IVPUSH Q2H PRN PRN Reason: Breakthrough Pain Last Admin: 11/24/16 17:29 Dose: 2 mg Multivitamins (Thera) 1 each PO WITHBREAKFAST [facility] Last Admin: 11/25/16 06:26 Dose: 1 each Ondansetron HCl (Zofran) 4 mg IVPUSH Q6H PRN PRN Reason: Nausea/Vomiting Oxycodone/Acetaminophen (Percocet 325-5 Mg) 1 - 2 tab PO Q4H PRN PRN Reason: Pain Last Admin: 11/25/16 09:23 Dose: 2 tab Senna (Senna) 8.6 mg PO BID PRN PRN Reason: Constipation Discontinued Medications Albuterol (Proventil Hfa) Confirm Administered Dose 6.7 gm INH .STK-MED ONE Stop: 11/24/16 13:11 Bupivacaine HCl (Marcaine 0.25%) Confirm Administered Dose 30 ml .ROUTE .STK- MED ONE Stop: 11/24/16 09:33 Last Admin: 11/24/16 12:32 Dose: 30 ml Cefazolin Sodium (Ancef) Confirm Administered Dose 2 gm .ROUTE .STK-MED ONE Stop: 11/24/16 09:33 Last Admin: 11/24/16 12:29 Dose: 2 gm Cefazolin Sodium (Ancef) Confirm Administered Dose 2 gm .ROUTE .STK-MED ONE Stop: 11/24/16 10:57 Morphine Sulfate 8 mg/Epinephrine HCl 0.3 mg/Cefuroxime Sodium 750 mg/Ketorolac Tromethamine 30 mg/Sodium Chloride 27.9 ml 0 mg .XX ONETIME ONE Stop: 11/24/16 10:31 Last Admin: 11/24/16 12:31 Dose: 788.3 mg Diphenhydramine HCl (Benadryl) 25 mg IVPUSH Q6H PRN PRN Reason: pruritis Ephedrine Sulfate (Ephedrine In Ns) Confirm Administered Dose 25 mg .ROUTE .STK- MED ONE Stop: 11/24/16 11:26 Ephedrine Sulfate (Ephedrine In Ns) Confirm Administered Dose 25 mg .ROUTE .STK- MED ONE Stop: 11/24/16 11:33 Ephedrine Sulfate (Ephedrine In Ns) Confirm Administered Dose 50 mg .ROUTE .STK- MED ONE Stop: 11/24/16 12:32 Famotidine (Pepcid) 20 mg PO BID [facility] Last Admin: 11/25/16 09:25 Dose: Not Given Fentanyl (Sublimaze) Confirm Administered Dose 250 mcg .ROUTE .STK-MED ONE Stop: 11/24/16 10:55 Fentanyl (Sublimaze) Confirm Administered Dose 100 mcg .ROUTE .STK-MED ONE Stop: 11/24/16 13:27 Last Admin: 11/25/16 07:38 Dose: Not Given Fentanyl (Sublimaze) 50 mcg IVPUSH Q5M PRN PRN Reason: Pain Stop: 11/24/16 18:00 Last Admin: 11/24/16 13:41 Dose: 50 mcg Fentanyl (Sublimaze) Confirm Administered Dose 100 mcg .ROUTE .STK-MED ONE Stop: 11/24/16 13:36 Last Admin: 11/24/16 17:17 Dose: Not Given Glycopyrrolate () Confirm Administered Dose 1 mg .ROUTE .STK-MED ONE Stop: 11/24/16 12:37 Hydromorphone HCl (Dilaudid) Confirm Administered Dose 1 mg .ROUTE .STK-MED ONE Stop: 11/24/16 11:55 Hydromorphone HCl (Dilaudid) 0.5 mg IVPUSH Q15M PRN PRN Reason: severe pain Stop: 11/24/16 14:46 Last Admin: 11/24/16 14:05 Dose: 0.5 mg Lactated Ringer's (Ringers, Lactated) 1,000 mls @ 125 mls/hr IV ASDIRECTED [facility] Stop: 11/24/16 23:00 Last Admin: 11/24/16 09:35 Dose: 125 mls/hr Cefazolin Sodium/Dextrose 2 gm (/ Premix) 50 mls @ 100 mls/hr IV Q8H [facility] Stop: 11/25/16 10:29 Last Admin: 11/25/16 09:20 Dose: 100 mls/hr Lidocaine HCl (Xylocaine-Mpf 1%) Confirm Administered Dose 6 mls @ as directed .ROUTE .ST-MED ONE Stop: 11/24/16 10:56 Lactated Ringer's (Ringers, Lactated) Confirm Administered Dose 3,000 mls @ as directed .ROUTE .STK-MED ONE Stop: 11/24/16 13:51 Iodine (Iodine 2% Mild Tincture) Confirm Administered Dose 30 ml .ROUTE .STK- MED ONE Stop: 11/24/16 09:33 Last Admin: 11/24/16 12:28 Dose: 30 ml Ketamine HCl (Ketalar) Confirm Administered Dose 500 mg .ROUTE .ST-MED ONE Stop: 11/24/16 12:39 Ketorolac Tromethamine (Toradol) Confirm Administered Dose 30 mg .ROUTE .STK- MED ONE Stop: 11/24/16 13:20 Lidocaine/Sodium Bicarbonate (Buffered Lidocaine 1% In Ns 8.4%) 0.25 ml .XX ONETIME PRN PRN Reason: Prior to IV Start Stop: 11/24/16 18:00 Last Admin: 11/24/16 09:34 Dose: 0.25 ml Naloxone HCl (Narcan) 0.1 mg IVPUSH Q5M PRN PRN Reason: Oversedation Stop: 11/24/16 13:16 Neostigmine Methylsulfate (Neostigmine) Confirm Administered Dose 5 mg .ROUTE .ST-MED ONE Stop: 11/24/16 12:37 Ondansetron HCl (Zofran) Confirm Administered Dose 4 mg .ROUTE .ST-MED ONE Stop: 11/24/16 12:38 Ondansetron HCl (Zofran) 4 mg IVPUSH ONETIME PRN PRN Reason: Nausea/Vomiting Stop: 11/24/16 18:00 Potassium Chloride (Klor-Con M20) 40 meq PO ONETIME ONE Stop: 11/25/16 09:37 Last Admin: 11/25/16 10:05 Dose: 40 meq Propofol (Diprivan 20 Ml) Confirm Administered Dose 200 mg .ROUTE .STK-MED ONE Stop: 11/24/16 10:55 Sodium Chloride (Saline Flush) 10 ml FLUSH ASDIRECTED PRN PRN Reason: Keep Vein Open Stop: 11/24/16 18:00 Tranexamic Acid (Cyklokapron) Confirm Administered Dose 1,000 mg .ROUTE .STK- MED ONE Stop: 11/24/16 09:33 Last Admin: 11/24/16 12:36 Dose: 1,000 mg - Exam Wound/Incisions: dressing dry and intact General: alert, cooperative, no acute distress Lungs: Normal respiratory effort Extremities: normal pulses, no calf tenderness, other (NVS intact for BLE. Trevon's negative. ) - Problem List Review Problem List Initiated/Reviewed/Updated: Yes - My Orders Last 24 Hours: Active Orders 24 hr Category Date Time Status Communication Order [RC] 2000 Care 11/24/16 14:40 Active Cooling Warming Measures [RC] ASDIRECTED Care 11/24/16 13:35 Inactive Notify Provider [RC] ASDIRECTED Care 11/24/16 13:35 Active Oxygen Therapy [RC] .PRN Care 11/24/16 13:35 Active Ready for Discharge [RC] PER UNIT ROUTINE Care 11/25/16 12:57 Ordered Vital Signs [RC] Q15M Care 11/24/16 13:35 Inactive Nutrition Reassessment/Plan, Adult [Consult to Cons 11/24/16 14:50 Active Material Coordinator] [CONS] Routine Acetaminophen/oxyCODONE [Percocet 325-5 MG] Med 11/24/16 13:00 Active 1 - 2 tab PO Q4H PRN Aspirin [Ecotrin] Med 11/25/16 09:00 Active 325 mg PO BID Atenolol [Tenormin] Med 11/24/16 21:00 Active 25 mg PO BID Bisacodyl [Dulcolax] Med 11/24/16 13:00 Active 5 mg PO DAILY PRN Cyclobenzaprine [Flexeril] Med 11/24/16 13:00 Active 10 mg PO TID PRN Docusate Sodium [Colace] Med 11/24/16 21:00 Active 100 mg PO BID Famotidine [Pepcid] Med 11/26/16 09:00 Active 20 mg PO DAILY Hydrochlorothiazide Med 11/25/16 09:00 Active 25 mg PO DAILY Lisinopril [Prinivil] Med 11/25/16 09:00 Active 40 mg PO DAILY Magnesium Hydroxide [Milk of Magnesia] Med 11/24/16 13:00 Active 30 ml PO BID PRN Morphine Med 11/24/16 13:00 Active 2 mg IVPUSH Q2H PRN Multivitamins,Therapeutic [Thera] Med 11/25/16 07:00 Active 1 each PO WITHBREAKFAST Ondansetron [Zofran] Med 11/24/16 13:00 Active 4 mg IVPUSH Q6H PRN Sennosides [Senna] Med 11/24/16 13:00 Active 8.6 mg PO BID PRN diphenhydrAMINE [Benadryl] Med 11/24/16 13:00 Active 25 mg IVPUSH Q4H PRN Medication Orders Aspirin (Ecotrin) 325 mg PO BID [facility] Last Admin: 11/25/16 09:18 Dose: 325 mg Atenolol (Tenormin) 25 mg PO BID [facility] Last Admin: 11/25/16 09:19 Dose: 25 mg Admin: 11/24/16 20:26 Dose: Not Given Bisacodyl (Dulcolax) 5 mg PO DAILY PRN PRN Reason: Constipation Cyclobenzaprine HCl (Flexeril) 10 mg PO TID PRN PRN Reason: Spasms Diphenhydramine HCl (Benadryl) 25 mg IVPUSH Q4H PRN PRN Reason: Nausea Docusate Sodium (Colace) 100 mg PO BID [facility] Last Admin: 11/25/16 09:19 Dose: 100 mg Admin: 11/24/16 20:22 Dose: 100 mg Famotidine (Pepcid) 20 mg PO DAILY [facility] Hydrochlorothiazide (Hydrochlorothiazide) 25 mg PO DAILY [facility] Last Admin: 11/25/16 09:19 Dose: 25 mg Lisinopril (Prinivil) 40 mg PO DAILY [facility] Last Admin: 11/25/16 09:19 Dose: 40 mg Magnesium Hydroxide (Milk Of Magnesia) 30 ml PO BID PRN PRN Reason: Constipation Morphine Sulfate (Morphine) 2 mg IVPUSH Q2H PRN PRN Reason: Breakthrough Pain Last Admin: 11/24/16 17:29 Dose: 2 mg Multivitamins (Thera) 1 each PO WITHBREAKFAST [facility] Last Admin: 11/25/16 06:26 Dose: 1 each Ondansetron HCl (Zofran) 4 mg IVPUSH Q6H PRN PRN Reason: Nausea/Vomiting Oxycodone/Acetaminophen (Percocet 325-5 Mg) 1 - 2 tab PO Q4H PRN PRN Reason: Pain Last Admin: 11/25/16 09:23 Dose: 2 tab Admin: 11/25/16 04:10 Dose: 2 tab Admin: 11/24/16 20:23 Dose: 2 tab Admin: 11/24/16 15:31 Dose: 2 tab Senna (Senna) 8.6 mg PO BID PRN PRN Reason: Constipation - Assessment Assessment (Free Text/Narrative):: POD#1 - right TKA - Plan Plan (Free Text/Narrative):: 1. Hgb 10.8. 2. 325mg ASA BID. Frequent mobility, TEDs. 3. Possible discharge to home today if the pt meets inpatient therapy goals. The pt's case was discussed with Dr. hCapa.
--- NOTE | 2016-11-25 13:02 | PCM.DCSUM1 ---
Discharge Summary - Hospital Course Brief History: Jeanie is a 71 yo female who underwent right TKA with Dr. Chapa on 11-24-2016 . The procedure was completed under general anesthesia. The pt tolerated the procedure well and was admitted to the Medical-Surgical Unit. Medical management was provided by the Hospitalist service. The pt's Hospital course was uneventful. The pt's Hgb on POD#1 was 10.8. On POD#1, 325mg BID was initiated for VTE prophylaxis. SCDs and TEDs were also ordered. A Mepilex dressing was placed at the incision site at the time of surgery and remained clean and dry. The pt participated in P.T. and O.T. and progressed well. The pt was allowed to WBAT. On POD#2, the pt was deemed appropriate to discharge to home with her family as she met inpatient therapy goals. - Discharge Data Discharge Date: 11/26/16 Discharge Disposition: Home, Self-Care 01 Condition: Good - Patient Summary/Data Operative Procedure(s) Performed: right total knee arthroplasty Consults: Consultations 11/24/16 06:47 Consult to Physician [CONS] Routine OT Evaluation and Treatment [CONS] Routine 11/24/16 06:51 PT Evaluation and Treatment [CONS] Routine 11/24/16 14:50 Nutrition Reassessment/Plan, Adult [Consult to Deicer Tester] [CONS] Routine - Patient Instructions Diet: Usual Diet as Tolerated Activity: Apply Ice, As Tolerated, Cough & Deep Breathe, Elevate Extremity, Full Weight Bearing Driving: Do Not Drive Showering/Bathing: May Shower Wound/Incision Care: Keep Operative Site/Wound Site Clean and Dry, Do NOT Change Dressing Notify Provider of: Fever, Increased Pain, Swelling and Redness, Drainage, Nausea and/or Vomiting Other/Special Instructions: Please get up and moving around every hour while awake. This helps to prevent blood clots. Please use your walker and have help as needed. Take a 325mg ASPIRIN TWICE DAILY. This also helps to prevent blood clots. The aspirin is being used for blood clot prevention and not for pain management, so please do not miss a dose of the medication. Do the exercises you were taught in the Hospital. Schedule for P.T. Use the pain medication as needed. The medication may cause drowsiness and constipation. Contact your primary care provider for instructions if you are constipated. You may use a stool softener like docusate sodium or Colace 100mg twice daily and/or a laxative like Miralax daily for constipation. Use the ice machine often. Elevate the limb to decrease swelling. Keep the Mepilex dressing in place until follow-up at the Clinic. Notify the Clinic if the dressing is saturated. Wear the ADELSO hose during the day and you may remove these at night. Eat a diet high in protein as this well help with healing. Schedule an appointment with your primary care provider for 'routine post-op care'. Call the Clinic with questions or concerns - [phone]. - Discharge Plan Prescriptions/Med Rec: Acetaminophen/oxyCODONE [Percocet 325-5 MG] 1 - 2 tab PO Q4H PRN #60 tablet PRN Reason: Pain Aspirin [Ecotrin] 325 mg PO BID #60 tab.ec Cyclobenzaprine [Flexeril] 10 mg PO TID PRN #40 tablet PRN Reason: muscle spasms Home Medications: Home Meds Atenolol 25 mg PO DAILY 11/20/16 [History] Hydrochlorothiazide 25 mg PO DAILY 11/20/16 [History] Lisinopril [Zestril] 40 mg PO DAILY 11/20/16 [History] Acetaminophen/oxyCODONE [Percocet 325-5 MG] 1 - 2 tab PO Q4H PRN #60 tablet [Rx] Aspirin [Ecotrin] 325 mg PO BID #60 tab.ec 11/25/16 [Rx] Cyclobenzaprine [Flexeril] 10 mg PO TID PRN #40 tablet 11/25/16 [Rx] Patient Handouts: Total Knee Replacement, Care After, [id number], Total Knee Replacement, [id number] Referrals: Keon Gallardo PA-C [Primary Care Provider] - 12/11/16 1:00 pm (Please check-in at 12:45pm.) Romi Licona PA-C [Physician Generation Technician] - 12/03/16 3:15 pm (Appointment with Romi on December 03, 2016 at 3:15pm. Appointment with Romi on December 10, 2016 at 1:15pm.) - Patient Data Vitals - Most Recent: Last Vital Signs Temp 98.2 F 11/25/16 12:20 Pulse 69 11/25/16 12:20 Resp 15 11/25/16 12:20 BP 106/59 L 11/25/16 12:20 Pulse Ox 93 L 11/25/16 12:20 Weight - Most Recent: 163 lb 8 oz I&O - Last 24 hours: Intake & Output 11/24/16 11/25/16 11/25/16 22:59 06:59 14:59 Intake Total 1420 900 150 Output Total 400 250 Balance 1420 500 -100 Lab Results - Last 24 hrs: Laboratory Results - last 24 hr 11/25/16 11/25/16 Range/Units 06:21 06:21 WBC 9.80 (3.98-10.04) K/mm3 RBC 3.91 L (3.98-5.22) M/mm3 Hgb 10.8 L (11.2-15.7) gm/L Hct 33.2 L (34.1-44.9) % MCV 84.9 (79.4-94.8) fl MCH 27.6 (25.6-32.2) pg MCHC 32.5 (32.2-35.5) g/dl RDW Std Deviation 44.3 (36.4-46.3) fL Plt Count 213 (182-369) K/mm3 MPV 10.1 (9.4-12.3) fl Neut % (Auto) 72.9 H (34.0-71.1) % Lymph % (Auto) 15.2 L (19.3-51.7) % [place] % (Auto) 9.6 (4.7-12.5) % Eos % (Auto) 1.8 (0.7-5.8) Baso % (Auto) 0.3 (0.1-1.2) % Neut # (Auto) 7.14 H (1.56-6.13) K/mm3 Lymph # (Auto) 1.49 (1.18-3.74) K/mm3 [place] # (Auto) 0.94 H (0.24-0.36) K/mm3 Eos # (Auto) 0.18 (0.04-0.36) K/mm3 Baso # (Auto) 0.03 (0.01-0.08) K/mm3 Sodium 141 (136-145) mEq/L Potassium 3.2 L (3.5-5.1) mEq/L Chloride 104 (98-107) mEq/L Carbon Dioxide 28 (21-32) mEq/L Anion Gap 12.2 (5-15) BUN 19 H (7-18) mg/dL Creatinine 1.0 (0.55-1.02) mg/dL Est Cr Clr Drug Dosing 37.60 mL/min Estimated GFR (MDRD) 55 (>60) mL/min BUN/Creatinine Ratio 19.0 H (14-18) Glucose 135 H (80-115) mg/dL Calcium 8.5 (8.5-10.1) mg/dL Total Bilirubin 0.4 (0.2-1.0) mg/dL AST 28 (15-37) U/L ALT 17 (14-59) U/L Alkaline Phosphatase 57 (46-116) U/L Total Protein 6.6 (6.4-8.2) g/dl Albumin 2.9 L (3.4-5.0) g/dl Globulin 3.7 gm/dL Albumin/Globulin Ratio 0.8 L (1-2) Med Orders - Current: Current Medications Aspirin (Ecotrin) 325 mg PO BID [facility] Last Admin: 11/25/16 09:18 Dose: 325 mg Atenolol (Tenormin) 25 mg PO BID [facility] Last Admin: 11/25/16 09:19 Dose: 25 mg Bisacodyl (Dulcolax) 5 mg PO DAILY PRN PRN Reason: Constipation Cyclobenzaprine HCl (Flexeril) 10 mg PO TID PRN PRN Reason: Spasms Diphenhydramine HCl (Benadryl) 25 mg IVPUSH Q4H PRN PRN Reason: Nausea Docusate Sodium (Colace) 100 mg PO BID [facility] Last Admin: 11/25/16 09:19 Dose: 100 mg Famotidine (Pepcid) 20 mg PO DAILY [facility] Hydrochlorothiazide (Hydrochlorothiazide) 25 mg PO DAILY [facility] Last Admin: 11/25/16 09:19 Dose: 25 mg Lisinopril (Prinivil) 40 mg PO DAILY [facility] Last Admin: 11/25/16 09:19 Dose: 40 mg Magnesium Hydroxide (Milk Of Magnesia) 30 ml PO BID PRN PRN Reason: Constipation Morphine Sulfate (Morphine) 2 mg IVPUSH Q2H PRN PRN Reason: Breakthrough Pain Last Admin: 11/24/16 17:29 Dose: 2 mg Multivitamins (Thera) 1 each PO WITHBREAKFAST [facility] Last Admin: 11/25/16 06:26 Dose: 1 each Ondansetron HCl (Zofran) 4 mg IVPUSH Q6H PRN PRN Reason: Nausea/Vomiting Oxycodone/Acetaminophen (Percocet 325-5 Mg) 1 - 2 tab PO Q4H PRN PRN Reason: Pain Last Admin: 11/25/16 09:23 Dose: 2 tab Senna (Senna) 8.6 mg PO BID PRN PRN Reason: Constipation Discontinued Medications Albuterol (Proventil Hfa) Confirm Administered Dose 6.7 gm INH .STK-MED ONE Stop: 11/24/16 13:11 Bupivacaine HCl (Marcaine 0.25%) Confirm Administered Dose 30 ml .ROUTE .STK- MED ONE Stop: 11/24/16 09:33 Last Admin: 11/24/16 12:32 Dose: 30 ml Cefazolin Sodium (Ancef) Confirm Administered Dose 2 gm .ROUTE .STK-MED ONE Stop: 11/24/16 09:33 Last Admin: 11/24/16 12:29 Dose: 2 gm Cefazolin Sodium (Ancef) Confirm Administered Dose 2 gm .ROUTE .STK-MED ONE Stop: 11/24/16 10:57 Morphine Sulfate 8 mg/Epinephrine HCl 0.3 mg/Cefuroxime Sodium 750 mg/Ketorolac Tromethamine 30 mg/Sodium Chloride 27.9 ml 0 mg .XX ONETIME ONE Stop: 11/24/16 10:31 Last Admin: 11/24/16 12:31 Dose: 788.3 mg Diphenhydramine HCl (Benadryl) 25 mg IVPUSH Q6H PRN PRN Reason: pruritis Ephedrine Sulfate (Ephedrine In Ns) Confirm Administered Dose 25 mg .ROUTE .STK- MED ONE Stop: 11/24/16 11:26 Ephedrine Sulfate (Ephedrine In Ns) Confirm Administered Dose 25 mg .ROUTE .STK- MED ONE Stop: 11/24/16 11:33 Ephedrine Sulfate (Ephedrine In Ns) Confirm Administered Dose 50 mg .ROUTE .STK- MED ONE Stop: 11/24/16 12:32 Famotidine (Pepcid) 20 mg PO BID [facility] Last Admin: 11/25/16 09:25 Dose: Not Given Fentanyl (Sublimaze) Confirm Administered Dose 250 mcg .ROUTE .STK-MED ONE Stop: 11/24/16 10:55 Fentanyl (Sublimaze) Confirm Administered Dose 100 mcg .ROUTE .STK-MED ONE Stop: 11/24/16 13:27 Last Admin: 11/25/16 07:38 Dose: Not Given Fentanyl (Sublimaze) 50 mcg IVPUSH Q5M PRN PRN Reason: Pain Stop: 11/24/16 18:00 Last Admin: 11/24/16 13:41 Dose: 50 mcg Fentanyl (Sublimaze) Confirm Administered Dose 100 mcg .ROUTE .STK-MED ONE Stop: 11/24/16 13:36 Last Admin: 11/24/16 17:17 Dose: Not Given Glycopyrrolate () Confirm Administered Dose 1 mg .ROUTE .STK-MED ONE Stop: 11/24/16 12:37 Hydromorphone HCl (Dilaudid) Confirm Administered Dose 1 mg .ROUTE .STK-MED ONE Stop: 11/24/16 11:55 Hydromorphone HCl (Dilaudid) 0.5 mg IVPUSH Q15M PRN PRN Reason: severe pain Stop: 11/24/16 14:46 Last Admin: 11/24/16 14:05 Dose: 0.5 mg Lactated Ringer's (Ringers, Lactated) 1,000 mls @ 125 mls/hr IV ASDIRECTED [facility] Stop: 11/24/16 23:00 Last Admin: 11/24/16 09:35 Dose: 125 mls/hr Cefazolin Sodium/Dextrose 2 gm (/ Premix) 50 mls @ 100 mls/hr IV Q8H [facility] Stop: 11/25/16 10:29 Last Admin: 11/25/16 09:20 Dose: 100 mls/hr Lidocaine HCl (Xylocaine-Mpf 1%) Confirm Administered Dose 6 mls @ as directed .ROUTE .STK-MED ONE Stop: 11/24/16 10:56 Lactated Ringer's (Ringers, Lactated) Confirm Administered Dose 3,000 mls @ as directed .ROUTE .STK-MED ONE Stop: 11/24/16 13:51 Iodine (Iodine 2% Mild Tincture) Confirm Administered Dose 30 ml .ROUTE .STK- MED ONE Stop: 11/24/16 09:33 Last Admin: 11/24/16 12:28 Dose: 30 ml Ketamine HCl (Ketalar) Confirm Administered Dose 500 mg .ROUTE .STK-MED ONE Stop: 11/24/16 12:39 Ketorolac Tromethamine (Toradol) Confirm Administered Dose 30 mg .ROUTE .STK- MED ONE Stop: 11/24/16 13:20 Lidocaine/Sodium Bicarbonate (Buffered Lidocaine 1% In Ns 8.4%) 0.25 ml .XX ONETIME PRN PRN Reason: Prior to IV Start Stop: 11/24/16 18:00 Last Admin: 11/24/16 09:34 Dose: 0.25 ml Naloxone HCl (Narcan) 0.1 mg IVPUSH Q5M PRN PRN Reason: Oversedation Stop: 11/24/16 13:16 Neostigmine Methylsulfate (Neostigmine) Confirm Administered Dose 5 mg .ROUTE .STK-MED ONE Stop: 11/24/16 12:37 Ondansetron HCl (Zofran) Confirm Administered Dose 4 mg .ROUTE .STK-MED ONE Stop: 11/24/16 12:38 Ondansetron HCl (Zofran) 4 mg IVPUSH ONETIME PRN PRN Reason: Nausea/Vomiting Stop: 11/24/16 18:00 Potassium Chloride (Klor-Con M20) 40 meq PO ONETIME ONE Stop: 11/25/16 09:37 Last Admin: 11/25/16 10:05 Dose: 40 meq Propofol (Diprivan 20 Ml) Confirm Administered Dose 200 mg .ROUTE .STK-MED ONE Stop: 11/24/16 10:55 Sodium Chloride (Saline Flush) 10 ml FLUSH ASDIRECTED PRN PRN Reason: Keep Vein Open Stop: 11/24/16 18:00 Tranexamic Acid (Cyklokapron) Confirm Administered Dose 1,000 mg .ROUTE .STK- MED ONE Stop: 11/24/16 09:33 Last Admin: 11/24/16 12:36 Dose: 1,000 mg *Q Meaningful Use (DIS) - VTE *Q VTE Criteria *Q: - Stroke *Q Stroke Criteria *Q: - AMI *Q AMI Criteria *Q:
[2016-11-25] MEDS: Cyclobenzaprine 10 MG Tab PO PRN (20:32)
[2016-11-26] MEDS: Acetaminophen/oxyCODONE 325-5 MG Tab PO PRN ×3 (01:08→10:08)
[2016-11-26] MEDS: Multivitamins,Therapeutic Tab PO SCH (06:02)
--- NOTE | 2016-11-26 07:44 | PCM.CONSN ---
- General Info Date of Service: 11/26/16 Admission Dx/Problem (Free Text): S/P Rt TKA, with Dr. Chapa, POD #2 Doing well, pain controlled, no nausea VSS Functional Status: Reports: pain controlled, tolerating diet, ambulating, urinating. Denies: new symptoms - Review of Systems General: Reports: No Symptoms Pulmonary: Denies: shortness of breath, cough Cardiovascular: Denies: Chest Pain Gastrointestinal: Denies: Abdominal pain Musculoskeletal: Reports: leg pain Systems Review Comment:: Difficult due to language barrier - Patient Data Vitals - most recent: Last Vital Signs Temp 98.2 F 11/26/16 03:34 Pulse 69 11/26/16 03:34 Resp 18 11/26/16 03:34 BP 118/85 11/26/16 03:34 Pulse Ox 91 L 11/26/16 03:34 Weight - most recent: 163 lb I&O - last 24 hours: Intake & Output 11/25/16 11/26/16 11/26/16 22:59 06:59 14:59 Intake Total 840 400 Output Total 400 300 Balance 440 100 Lab Results last 24 hrs: Laboratory Results - last 24 hr 11/25/16 Range/Units 06:21 Sodium 141 (136-145) mEq/L Potassium 3.2 L (3.5-5.1) mEq/L Chloride 104 (98-107) mEq/L Carbon Dioxide 28 (21-32) mEq/L Anion Gap 12.2 (5-15) BUN 19 H (7-18) mg/dL Creatinine 1.0 (0.55-1.02) mg/dL Est Cr Clr Drug Dosing 37.60 mL/min Estimated GFR (MDRD) 55 (>60) mL/min BUN/Creatinine Ratio 19.0 H (14-18) Glucose 135 H (80-115) mg/dL Calcium 8.5 (8.5-10.1) mg/dL Total Bilirubin 0.4 (0.2-1.0) mg/dL AST 28 (15-37) U/L ALT 17 (14-59) U/L Alkaline Phosphatase 57 (46-116) U/L Total Protein 6.6 (6.4-8.2) g/dl Albumin 2.9 L (3.4-5.0) g/dl Globulin 3.7 gm/dL Albumin/Globulin Ratio 0.8 L (1-2) Med Orders - Current: Current Medications Aspirin (Ecotrin) 325 mg PO BID [facility] Last Admin: 11/25/16 20:32 Dose: 325 mg Atenolol (Tenormin) 25 mg PO DAILY [facility] Bisacodyl (Dulcolax) 5 mg PO DAILY PRN PRN Reason: Constipation Last Admin: 11/25/16 17:18 Dose: 5 mg Cyclobenzaprine HCl (Flexeril) 10 mg PO TID PRN PRN Reason: Spasms Last Admin: 11/25/16 20:32 Dose: 10 mg Diphenhydramine HCl (Benadryl) 25 mg IVPUSH Q4H PRN PRN Reason: Nausea Docusate Sodium (Colace) 100 mg PO BID [facility] Last Admin: 11/25/16 20:32 Dose: 100 mg Famotidine (Pepcid) 20 mg PO DAILY [facility] Hydrochlorothiazide (Hydrochlorothiazide) 25 mg PO DAILY [facility] Last Admin: 11/25/16 09:19 Dose: 25 mg Lisinopril (Prinivil) 40 mg PO DAILY [facility] Last Admin: 11/25/16 09:19 Dose: 40 mg Magnesium Hydroxide (Milk Of Magnesia) 30 ml PO BID PRN PRN Reason: Constipation Morphine Sulfate (Morphine) 2 mg IVPUSH Q2H PRN PRN Reason: Breakthrough Pain Last Admin: 11/25/16 00:00 Dose: 2 mg Multivitamins (Thera) 1 each PO WITHBREAKFAST [facility] Last Admin: 11/26/16 06:02 Dose: 1 each Ondansetron HCl (Zofran) 4 mg IVPUSH Q6H PRN PRN Reason: Nausea/Vomiting Oxycodone/Acetaminophen (Percocet 325-5 Mg) 1 - 2 tab PO Q4H PRN PRN Reason: Pain Last Admin: 11/26/16 06:02 Dose: 2 tab Senna (Senna) 8.6 mg PO BID PRN PRN Reason: Constipation Discontinued Medications Albuterol (Proventil Hfa) Confirm Administered Dose 6.7 gm INH .STK-MED ONE Stop: 11/24/16 13:11 Atenolol (Tenormin) 25 mg PO BID [facility] Last Admin: 11/25/16 20:42 Dose: 25 mg Bupivacaine HCl (Marcaine 0.25%) Confirm Administered Dose 30 ml .ROUTE .STK- MED ONE Stop: 11/24/16 09:33 Last Admin: 11/24/16 12:32 Dose: 30 ml Cefazolin Sodium (Ancef) Confirm Administered Dose 2 gm .ROUTE .STK-MED ONE Stop: 11/24/16 09:33 Last Admin: 11/24/16 12:29 Dose: 2 gm Cefazolin Sodium (Ancef) Confirm Administered Dose 2 gm .ROUTE .STK-MED ONE Stop: 11/24/16 10:57 Morphine Sulfate 8 mg/Epinephrine HCl 0.3 mg/Cefuroxime Sodium 750 mg/Ketorolac Tromethamine 30 mg/Sodium Chloride 27.9 ml 0 mg .XX ONETIME ONE Stop: 11/24/16 10:31 Last Admin: 11/24/16 12:31 Dose: 788.3 mg Diphenhydramine HCl (Benadryl) 25 mg IVPUSH Q6H PRN PRN Reason: pruritis Ephedrine Sulfate (Ephedrine In Ns) Confirm Administered Dose 25 mg .ROUTE .STK- MED ONE Stop: 11/24/16 11:26 Ephedrine Sulfate (Ephedrine In Ns) Confirm Administered Dose 25 mg .ROUTE .STK- MED ONE Stop: 11/24/16 11:33 Ephedrine Sulfate (Ephedrine In Ns) Confirm Administered Dose 50 mg .ROUTE .STK- MED ONE Stop: 11/24/16 12:32 Famotidine (Pepcid) 20 mg PO BID [facility] Last Admin: 11/25/16 09:25 Dose: Not Given Fentanyl (Sublimaze) Confirm Administered Dose 250 mcg .ROUTE .STK-MED ONE Stop: 11/24/16 10:55 Fentanyl (Sublimaze) Confirm Administered Dose 100 mcg .ROUTE .STK-MED ONE Stop: 11/24/16 13:27 Last Admin: 11/25/16 07:38 Dose: Not Given Fentanyl (Sublimaze) 50 mcg IVPUSH Q5M PRN PRN Reason: Pain Stop: 11/24/16 18:00 Last Admin: 11/24/16 13:41 Dose: 50 mcg Fentanyl (Sublimaze) Confirm Administered Dose 100 mcg .ROUTE .STK-MED ONE Stop: 11/24/16 13:36 Last Admin: 11/24/16 17:17 Dose: Not Given Glycopyrrolate () Confirm Administered Dose 1 mg .ROUTE .STK-MED ONE Stop: 11/24/16 12:37 Hydromorphone HCl (Dilaudid) Confirm Administered Dose 1 mg .ROUTE .STK-MED ONE Stop: 11/24/16 11:55 Hydromorphone HCl (Dilaudid) 0.5 mg IVPUSH Q15M PRN PRN Reason: severe pain Stop: 11/24/16 14:46 Last Admin: 11/24/16 14:05 Dose: 0.5 mg Lactated Ringer's (Ringers, Lactated) 1,000 mls @ 125 mls/hr IV ASDIRECTED [facility] Stop: 11/24/16 23:00 Last Admin: 11/24/16 09:35 Dose: 125 mls/hr Cefazolin Sodium/Dextrose 2 gm (/ Premix) 50 mls @ 100 mls/hr IV Q8H [facility] Stop: 11/25/16 10:29 Last Admin: 11/25/16 09:20 Dose: 100 mls/hr Lidocaine HCl (Xylocaine-Mpf 1%) Confirm Administered Dose 6 mls @ as directed .ROUTE .STK-MED ONE Stop: 11/24/16 10:56 Lactated Ringer's (Ringers, Lactated) Confirm Administered Dose 3,000 mls @ as directed .ROUTE .STK-MED ONE Stop: 11/24/16 13:51 Iodine (Iodine 2% Mild Tincture) Confirm Administered Dose 30 ml .ROUTE .STK- MED ONE Stop: 11/24/16 09:33 Last Admin: 11/24/16 12:28 Dose: 30 ml Ketamine HCl (Ketalar) Confirm Administered Dose 500 mg .ROUTE .STK-MED ONE Stop: 11/24/16 12:39 Ketorolac Tromethamine (Toradol) Confirm Administered Dose 30 mg .ROUTE .STK- MED ONE Stop: 11/24/16 13:20 Lidocaine/Sodium Bicarbonate (Buffered Lidocaine 1% In Ns 8.4%) 0.25 ml .XX ONETIME PRN PRN Reason: Prior to IV Start Stop: 11/24/16 18:00 Last Admin: 11/24/16 09:34 Dose: 0.25 ml Naloxone HCl (Narcan) 0.1 mg IVPUSH Q5M PRN PRN Reason: Oversedation Stop: 11/24/16 13:16 Neostigmine Methylsulfate (Neostigmine) Confirm Administered Dose 5 mg .ROUTE .STK-MED ONE Stop: 11/24/16 12:37 Ondansetron HCl (Zofran) Confirm Administered Dose 4 mg .ROUTE .STK-MED ONE Stop: 11/24/16 12:38 Ondansetron HCl (Zofran) 4 mg IVPUSH ONETIME PRN PRN Reason: Nausea/Vomiting Stop: 11/24/16 18:00 Potassium Chloride (Klor-Con M20) 40 meq PO ONETIME ONE Stop: 11/25/16 09:37 Last Admin: 11/25/16 10:05 Dose: 40 meq Propofol (Diprivan 20 Ml) Confirm Administered Dose 200 mg .ROUTE .STK-MED ONE Stop: 11/24/16 10:55 Sodium Chloride (Saline Flush) 10 ml FLUSH ASDIRECTED PRN PRN Reason: Keep Vein Open Stop: 11/24/16 18:00 Tranexamic Acid (Cyklokapron) Confirm Administered Dose 1,000 mg .ROUTE .STK- MED ONE Stop: 11/24/16 09:33 Last Admin: 11/24/16 12:36 Dose: 1,000 mg - Exam Quality Assessment: DVT prophylaxis General: alert, oriented, cooperative, no acute distress HEENT: Pupils equal, Pupils reactive, EOMI, Mucous membr. moist/pink Neck: supple Lungs: Clear to auscultation, Normal respiratory effort Cardiovascular: Regular Rate, Regular Rhythm Abdomen: bowel sounds present, soft, no tenderness (Female) Exam: Deferred Extremities: other (teds, SCD's bilat) Neurological: no new focal deficit Psy/Mental Status: alert, normal affect, normal mood Consult PN Assessment/Plan POD#: 2 Procedures: Procedures ASSAY OF FERRITIN (11/06/16) ASSAY OF PREALBUMIN (11/06/16) ASSAY OF SERUM ALBUMIN (11/06/16) ASSAY THYROID STIM HORMONE (10/01/16) CHEST X-RAY 2VW FRONTAL&LATL (11/06/16) COMPLETE CBC W/AUTO DIFF WBC (11/06/16) DXA BONE DENSITY AXIAL (10/16/16) GLYCOSYLATED HEMOGLOBIN TEST (10/01/16) LIPID PANEL (10/01/16) METABOLIC PANEL TOTAL CA (11/06/16) PROTHROMBIN TIME (11/06/16) ROUTINE VENIPUNCTURE (11/06/16) THROMBOPLASTIN TIME PARTIAL (11/06/16) VITAMIN D 25 HYDROXY (11/06/16) X-RAY EXAM KNEE 4 OR MORE (10/01/16) (1) S/P total knee arthroplasty SNOMED Code(s): 1566159885115, 767669569, 8640805659242 Code(s): Z96.659 - PRESENCE OF UNSPECIFIED ARTIFICIAL KNEE JOINT Priority: High Current Visit: Yes Qualifiers: Laterality: right Qualified Code(s): Z96.651 - Presence of right artificial knee joint (2) Osteoarthritis SNOMED Code(s): 534898925 Code(s): M19.90 - UNSPECIFIED OSTEOARTHRITIS, UNSPECIFIED SITE Priority: High Current Visit: Yes Qualifiers: Osteoarthritis location: knee Osteoarthritis type: primary Laterality: right Qualified Code(s): M17.11 - Unilateral primary osteoarthritis, right knee (3) Hypertension SNOMED Code(s): 24368264 Code(s): I10 - ESSENTIAL (PRIMARY) HYPERTENSION Priority: Medium Current Visit: No Qualifiers: Hypertension type: essential hypertension Qualified Code(s): I10 - Essential (primary) hypertension (4) Obesity (BMI 30-39.9) SNOMED Code(s): 235944034, 836976192 Code(s): E66.9 - OBESITY, UNSPECIFIED Priority: Medium Current Visit: No Problem List Initiated/Reviewed/Updated: Yes My Orders last 24 hours: My Active Orders 11/26/16 07:42 BASIC METABOLIC PANEL,BMP [CHEM] Routine CBC WITH AUTO DIFF [HEME] Routine MAGNESIUM [CHEM] Routine Plan: I/P: S/P Rt RENEE with Dr. Chapa, POD #2 -Pain under good control at this time -Pain management and DVT prophylax per primary team -IS/RT -PT/OT -VSS Mild hypokalemia -Replaced yesterday; recheck this am with mag level Chronic: HTN- cont home meds- stable Obesity Other: PT/OT CM/SW for assist with DC planning- plans dc home with family today DVT/GI prophylax Patient is Full Code status
[2016-11-26] MEDS ORDERED: Atenolol 25 MG Tab PO SCH (09:00)
[2016-11-26] MEDS ORDERED: Famotidine 20 MG Tab PO SCH (09:00)
[2016-11-26] MEDS: Aspirin 325 MG Tab.EC PO SCH (09:03)
[2016-11-26] MEDS: Docusate Sodium 100 MG Cap PO SCH (09:04)
[2016-11-26] MEDS: Cyclobenzaprine 10 MG Tab PO PRN (09:04)
[2016-11-26] MEDS: Hydrochlorothiazide 25 MG Tab PO SCH (09:04)
[2016-11-26 09:15] VITALS: BP 115/66
[2016-11-26] MEDS: Lisinopril 20 MG Tab PO SCH (09:15)
--- NOTE | 2016-11-26 10:17 | PCM.SURGPN ---
- General Info Date of Service: 11/26/16 POD#: 2 Functional Status: Reports: pain controlled, tolerating diet, ambulating, urinating. Denies: new symptoms - Review of Systems Musculoskeletal: Reports: other (The pt has progressed well with P.T.) - Patient Data Vitals - most recent: Last Vital Signs Temp 97.3 F 11/26/16 09:15 Pulse 72 11/26/16 09:15 Resp 16 11/26/16 09:15 BP 115/66 11/26/16 09:15 Pulse Ox 91 L 11/26/16 09:15 Weight - most recent: 163 lb 8 oz I&O - last 24 hours: Intake & Output 11/25/16 11/26/16 11/26/16 22:59 06:59 14:59 Intake Total 840 400 Output Total 400 300 Balance 440 100 Lab Results last 24 hrs: Laboratory Results - last 24 hr 11/26/16 11/26/16 Range/Units 08:15 08:15 WBC 10.46 H (3.98-10.04) K/mm3 RBC 3.94 L (3.98-5.22) M/mm3 Hgb 10.8 L (11.2-15.7) gm/L Hct 33.8 L (34.1-44.9) % MCV 85.8 (79.4-94.8) fl MCH 27.4 (25.6-32.2) pg MCHC 32.0 L (32.2-35.5) g/dl RDW Std Deviation 45.7 (36.4-46.3) fL Plt Count 219 (182-369) K/mm3 MPV 10.2 (9.4-12.3) fl Neut % (Auto) 56.4 (34.0-71.1) % Lymph % (Auto) 23.1 (19.3-51.7) % Fisher % (Auto) 9.4 (4.7-12.5) % Eos % (Auto) 10.3 H (0.7-5.8) Baso % (Auto) 0.5 (0.1-1.2) % Neut # (Auto) 5.90 (1.56-6.13) K/mm3 Lymph # (Auto) 2.42 (1.18-3.74) K/mm3 Fisher # (Auto) 0.98 H (0.24-0.36) K/mm3 Eos # (Auto) 1.08 H (0.04-0.36) K/mm3 Baso # (Auto) 0.05 (0.01-0.08) K/mm3 Sodium 139 (136-145) mEq/L Potassium 3.2 L (3.5-5.1) mEq/L Chloride 104 (98-107) mEq/L Carbon Dioxide 30 (21-32) mEq/L Anion Gap 8.2 (5-15) BUN 13 (7-18) mg/dL Creatinine 0.9 (0.55-1.02) mg/dL Est Cr Clr Drug Dosing 41.78 mL/min Estimated GFR (MDRD) > 60 (>60) mL/min BUN/Creatinine Ratio 14.4 (14-18) Glucose 111 (80-115) mg/dL Calcium 8.6 (8.5-10.1) mg/dL Magnesium 1.9 (1.8-2.4) mg/dl Med Orders - Current: Current Medications Aspirin (Ecotrin) 325 mg PO BID [facility] Last Admin: 11/26/16 09:03 Dose: 325 mg Atenolol (Tenormin) 25 mg PO DAILY [facility] Last Admin: 11/26/16 09:15 Dose: 25 mg Bisacodyl (Dulcolax) 5 mg PO DAILY PRN PRN Reason: Constipation Last Admin: 11/25/16 17:18 Dose: 5 mg Cyclobenzaprine HCl (Flexeril) 10 mg PO TID PRN PRN Reason: Spasms Last Admin: 11/26/16 09:04 Dose: 10 mg Diphenhydramine HCl (Benadryl) 25 mg IVPUSH Q4H PRN PRN Reason: Nausea Docusate Sodium (Colace) 100 mg PO BID [facility] Last Admin: 11/26/16 09:04 Dose: 100 mg Famotidine (Pepcid) 20 mg PO DAILY [facility] Last Admin: 11/26/16 09:04 Dose: 20 mg Hydrochlorothiazide (Hydrochlorothiazide) 25 mg PO DAILY [facility] Last Admin: 11/26/16 09:04 Dose: 25 mg Lisinopril (Prinivil) 40 mg PO DAILY [facility] Last Admin: 11/26/16 09:15 Dose: 40 mg Magnesium Hydroxide (Milk Of Magnesia) 30 ml PO BID PRN PRN Reason: Constipation Morphine Sulfate (Morphine) 2 mg IVPUSH Q2H PRN PRN Reason: Breakthrough Pain Last Admin: 11/25/16 00:00 Dose: 2 mg Multivitamins (Thera) 1 each PO WITHBREAKFAST [facility] Last Admin: 11/26/16 06:02 Dose: 1 each Ondansetron HCl (Zofran) 4 mg IVPUSH Q6H PRN PRN Reason: Nausea/Vomiting Oxycodone/Acetaminophen (Percocet 325-5 Mg) 1 - 2 tab PO Q4H PRN PRN Reason: Pain Last Admin: 11/26/16 10:08 Dose: 2 tab Senna (Senna) 8.6 mg PO BID PRN PRN Reason: Constipation Discontinued Medications Albuterol (Proventil Hfa) Confirm Administered Dose 6.7 gm INH .STK-MED ONE Stop: 11/24/16 13:11 Atenolol (Tenormin) 25 mg PO BID [facility] Last Admin: 11/25/16 20:42 Dose: 25 mg Bupivacaine HCl (Marcaine 0.25%) Confirm Administered Dose 30 ml .ROUTE .STK- MED ONE Stop: 11/24/16 09:33 Last Admin: 11/24/16 12:32 Dose: 30 ml Cefazolin Sodium (Ancef) Confirm Administered Dose 2 gm .ROUTE .STK-MED ONE Stop: 11/24/16 09:33 Last Admin: 11/24/16 12:29 Dose: 2 gm Cefazolin Sodium (Ancef) Confirm Administered Dose 2 gm .ROUTE .STK-MED ONE Stop: 11/24/16 10:57 Morphine Sulfate 8 mg/Epinephrine HCl 0.3 mg/Cefuroxime Sodium 750 mg/Ketorolac Tromethamine 30 mg/Sodium Chloride 27.9 ml 0 mg .XX ONETIME ONE Stop: 11/24/16 10:31 Last Admin: 11/24/16 12:31 Dose: 788.3 mg Diphenhydramine HCl (Benadryl) 25 mg IVPUSH Q6H PRN PRN Reason: pruritis Ephedrine Sulfate (Ephedrine In Ns) Confirm Administered Dose 25 mg .ROUTE .STK- MED ONE Stop: 11/24/16 11:26 Ephedrine Sulfate (Ephedrine In Ns) Confirm Administered Dose 25 mg .ROUTE .STK- MED ONE Stop: 11/24/16 11:33 Ephedrine Sulfate (Ephedrine In Ns) Confirm Administered Dose 50 mg .ROUTE .STK- MED ONE Stop: 11/24/16 12:32 Famotidine (Pepcid) 20 mg PO BID [facility] Last Admin: 11/25/16 09:25 Dose: Not Given Fentanyl (Sublimaze) Confirm Administered Dose 250 mcg .ROUTE .STK-MED ONE Stop: 11/24/16 10:55 Fentanyl (Sublimaze) Confirm Administered Dose 100 mcg .ROUTE .STK-MED ONE Stop: 11/24/16 13:27 Last Admin: 11/25/16 07:38 Dose: Not Given Fentanyl (Sublimaze) 50 mcg IVPUSH Q5M PRN PRN Reason: Pain Stop: 11/24/16 18:00 Last Admin: 11/24/16 13:41 Dose: 50 mcg Fentanyl (Sublimaze) Confirm Administered Dose 100 mcg .ROUTE .STK-MED ONE Stop: 11/24/16 13:36 Last Admin: 11/24/16 17:17 Dose: Not Given Glycopyrrolate () Confirm Administered Dose 1 mg .ROUTE .STK-MED ONE Stop: 11/24/16 12:37 Hydromorphone HCl (Dilaudid) Confirm Administered Dose 1 mg .ROUTE .STK-MED ONE Stop: 11/24/16 11:55 Hydromorphone HCl (Dilaudid) 0.5 mg IVPUSH Q15M PRN PRN Reason: severe pain Stop: 11/24/16 14:46 Last Admin: 11/24/16 14:05 Dose: 0.5 mg Lactated Ringer's (Ringers, Lactated) 1,000 mls @ 125 mls/hr IV ASDIRECTED [facility] Stop: 11/24/16 23:00 Last Admin: 11/24/16 09:35 Dose: 125 mls/hr Cefazolin Sodium/Dextrose 2 gm (/ Premix) 50 mls @ 100 mls/hr IV Q8H [facility] Stop: 11/25/16 10:29 Last Admin: 11/25/16 09:20 Dose: 100 mls/hr Lidocaine HCl (Xylocaine-Mpf 1%) Confirm Administered Dose 6 mls @ as directed .ROUTE .STK-MED ONE Stop: 11/24/16 10:56 Lactated Ringer's (Ringers, Lactated) Confirm Administered Dose 3,000 mls @ as directed .ROUTE .STK-MED ONE Stop: 11/24/16 13:51 Iodine (Iodine 2% Mild Tincture) Confirm Administered Dose 30 ml .ROUTE .STK- MED ONE Stop: 11/24/16 09:33 Last Admin: 11/24/16 12:28 Dose: 30 ml Ketamine HCl (Ketalar) Confirm Administered Dose 500 mg .ROUTE .STK-MED ONE Stop: 11/24/16 12:39 Ketorolac Tromethamine (Toradol) Confirm Administered Dose 30 mg .ROUTE .STK- MED ONE Stop: 11/24/16 13:20 Lidocaine/Sodium Bicarbonate (Buffered Lidocaine 1% In Ns 8.4%) 0.25 ml .XX ONETIME PRN PRN Reason: Prior to IV Start Stop: 11/24/16 18:00 Last Admin: 11/24/16 09:34 Dose: 0.25 ml Naloxone HCl (Narcan) 0.1 mg IVPUSH Q5M PRN PRN Reason: Oversedation Stop: 11/24/16 13:16 Neostigmine Methylsulfate (Neostigmine) Confirm Administered Dose 5 mg .ROUTE .STK-MED ONE Stop: 11/24/16 12:37 Ondansetron HCl (Zofran) Confirm Administered Dose 4 mg .ROUTE .STK-MED ONE Stop: 11/24/16 12:38 Ondansetron HCl (Zofran) 4 mg IVPUSH ONETIME PRN PRN Reason: Nausea/Vomiting Stop: 11/24/16 18:00 Potassium Chloride (Klor-Con M20) 40 meq PO ONETIME ONE Stop: 11/25/16 09:37 Last Admin: 11/25/16 10:05 Dose: 40 meq Propofol (Diprivan 20 Ml) Confirm Administered Dose 200 mg .ROUTE .STK-MED ONE Stop: 11/24/16 10:55 Sodium Chloride (Saline Flush) 10 ml FLUSH ASDIRECTED PRN PRN Reason: Keep Vein Open Stop: 11/24/16 18:00 Tranexamic Acid (Cyklokapron) Confirm Administered Dose 1,000 mg .ROUTE .STK- MED ONE Stop: 11/24/16 09:33 Last Admin: 11/24/16 12:36 Dose: 1,000 mg - Exam Wound/Incisions: dressing dry and intact General: alert, cooperative, no acute distress Lungs: Normal respiratory effort Extremities: normal pulses, no calf tenderness, other (NVS intact for BLE.) - Problem List Review Problem List Initiated/Reviewed/Updated: Yes - My Orders Last 24 Hours: Active Orders 24 hr Category Date Time Status Ready for Discharge [RC] PER UNIT ROUTINE Care 11/25/16 12:57 Inactive Ready for Discharge [RC] PER UNIT ROUTINE Care 11/26/16 10:11 Ordered Atenolol [Tenormin] Med 11/26/16 09:00 Active 25 mg PO DAILY Famotidine [Pepcid] Med 11/26/16 09:00 Active 20 mg PO DAILY Medication Orders Aspirin (Ecotrin) 325 mg PO BID [facility] Last Admin: 11/26/16 09:03 Dose: 325 mg Admin: 11/25/16 20:32 Dose: 325 mg Admin: 11/25/16 09:18 Dose: 325 mg Atenolol (Tenormin) 25 mg PO DAILY [facility] Last Admin: 11/26/16 09:15 Dose: 25 mg Bisacodyl (Dulcolax) 5 mg PO DAILY PRN PRN Reason: Constipation Last Admin: 11/25/16 17:18 Dose: 5 mg Cyclobenzaprine HCl (Flexeril) 10 mg PO TID PRN PRN Reason: Spasms Last Admin: 11/26/16 09:04 Dose: 10 mg Admin: 11/25/16 20:32 Dose: 10 mg Diphenhydramine HCl (Benadryl) 25 mg IVPUSH Q4H PRN PRN Reason: Nausea Docusate Sodium (Colace) 100 mg PO BID [facility] Last Admin: 11/26/16 09:04 Dose: 100 mg Admin: 11/25/16 20:32 Dose: 100 mg Admin: 11/25/16 09:19 Dose: 100 mg Admin: 11/24/16 20:22 Dose: 100 mg Famotidine (Pepcid) 20 mg PO DAILY [facility] Last Admin: 11/26/16 09:04 Dose: 20 mg Hydrochlorothiazide (Hydrochlorothiazide) 25 mg PO DAILY [facility] Last Admin: 11/26/16 09:04 Dose: 25 mg Admin: 11/25/16 09:19 Dose: 25 mg Lisinopril (Prinivil) 40 mg PO DAILY [facility] Last Admin: 11/26/16 09:15 Dose: 40 mg Admin: 11/25/16 09:19 Dose: 40 mg Magnesium Hydroxide (Milk Of Magnesia) 30 ml PO BID PRN PRN Reason: Constipation Morphine Sulfate (Morphine) 2 mg IVPUSH Q2H PRN PRN Reason: Breakthrough Pain Last Admin: 11/25/16 00:00 Dose: 2 mg Admin: 11/24/16 17:29 Dose: 2 mg Multivitamins (Thera) 1 each PO WITHBREAKFAST [facility] Last Admin: 11/26/16 06:02 Dose: 1 each Admin: 11/25/16 06:26 Dose: 1 each Ondansetron HCl (Zofran) 4 mg IVPUSH Q6H PRN PRN Reason: Nausea/Vomiting Oxycodone/Acetaminophen (Percocet 325-5 Mg) 1 - 2 tab PO Q4H PRN PRN Reason: Pain Last Admin: 11/26/16 10:08 Dose: 2 tab Admin: 11/26/16 06:02 Dose: 2 tab Admin: 11/26/16 01:08 Dose: 2 tab Admin: 11/25/16 20:39 Dose: 2 tab Admin: 11/25/16 17:11 Dose: 2 tab Admin: 11/25/16 13:36 Dose: 2 tab Admin: 11/25/16 09:23 Dose: 2 tab Admin: 11/25/16 04:10 Dose: 2 tab Admin: 11/24/16 20:23 Dose: 2 tab Admin: 11/24/16 15:31 Dose: 2 tab Senna (Senna) 8.6 mg PO BID PRN PRN Reason: Constipation - Assessment Assessment (Free Text/Narrative):: POD#2 - right TKA - Plan Plan (Free Text/Narrative):: 1. Discharge to home today. 2. Percocet and Flexeril for pain management. 3. 325mg ASA BID. The pt's case was discussed with Dr. Chapa.
--- NOTE | 2016-11-26 10:17 | PCM.DCSUM1 ---
Discharge Summary - Hospital Course Brief History: Jeanie is a 71 yo female who underwent right TKA with Dr. Chapa on 11-24-2016 . The procedure was completed under general anesthesia. The pt tolerated the procedure well and was admitted to the Medical-Surgical Unit. Medical management was provided by the Hospitalist service. The pt's Hospital course was uneventful. The pt's Hgb on POD#1 was 10.8. On POD#1, 325mg BID was initiated for VTE prophylaxis. SCDs and TEDs were also ordered. A Mepilex dressing was placed at the incision site at the time of surgery and remained clean and dry. The pt participated in P.T. and O.T. and progressed well. The pt was allowed to WBAT. On POD#2, the pt was deemed appropriate to discharge to home with her family as she met inpatient therapy goals. - Discharge Data Discharge Date: 11/26/16 Discharge Disposition: Home, Self-Care 01 Condition: Good - Patient Summary/Data Operative Procedure(s) Performed: right total knee arthroplasty Consults: Consultations 11/24/16 06:47 Consult to Physician [CONS] Routine OT Evaluation and Treatment [CONS] Routine 11/24/16 06:51 PT Evaluation and Treatment [CONS] Routine 11/24/16 14:50 Nutrition Reassessment/Plan, Adult [Consult to Roller Turner] [CONS] Routine - Patient Instructions Diet: Usual Diet as Tolerated Activity: Apply Ice, As Tolerated, Cough & Deep Breathe, Elevate Extremity, Full Weight Bearing Driving: Do Not Drive Showering/Bathing: May Shower Wound/Incision Care: Keep Operative Site/Wound Site Clean and Dry, Do NOT Change Dressing Notify Provider of: Fever, Increased Pain, Swelling and Redness, Drainage, Nausea and/or Vomiting Other/Special Instructions: Please get up and moving around every hour while awake. This helps to prevent blood clots. Please use your walker and have help as needed. Take a 325mg ASPIRIN TWICE DAILY. This also helps to prevent blood clots. The aspirin is being used for blood clot prevention and not for pain management, so please do not miss a dose of the medication. Do the exercises you were taught in the Hospital. Schedule for P.T. Use the pain medication as needed. You have been given a prescription for Percocet 5/325mg ( oxycodone/APAP 5/325mg) and you may use 1 or 2 tablets as needed for pain. The medications cause fatigue, constipation, nausea and they are addictive so please try to wean from use of the pain medication as able. Contact your primary care provider for instructions if you are constipated. You may use a stool softener like docusate sodium or Colace 100mg twice daily and/or a laxative like Miralax daily for constipation. Use the ice machine often. Elevate the limb to decrease swelling. Keep the Mepilex dressing in place until follow-up at the Clinic. Notify the Clinic if the dressing is saturated. Wear the ADELSO hose during the day and you may remove these at night. Eat a diet high in protein as this well help with healing. Schedule an appointment with your primary care provider for 'routine post-op care'. Call the Clinic with questions or concerns - [phone]. - Discharge Plan Prescriptions/Med Rec: Acetaminophen/oxyCODONE [Percocet 325-5 MG] 1 - 2 tab PO Q4H PRN #60 tablet PRN Reason: Pain Aspirin [Ecotrin] 325 mg PO BID #60 tab.ec Cyclobenzaprine [Flexeril] 10 mg PO TID PRN #40 tablet PRN Reason: muscle spasms Home Medications: Home Meds Atenolol 25 mg PO DAILY 11/20/16 [History] Hydrochlorothiazide 25 mg PO DAILY 11/20/16 [History] Lisinopril [Zestril] 40 mg PO DAILY 11/20/16 [History] Acetaminophen/oxyCODONE [Percocet 325-5 MG] 1 - 2 tab PO Q4H PRN #60 tablet [Rx] Aspirin [Ecotrin] 325 mg PO BID #60 tab.ec 11/25/16 [Rx] Cyclobenzaprine [Flexeril] 10 mg PO TID PRN #40 tablet 11/25/16 [Rx] Patient Handouts: Total Knee Replacement, Care After, [id number], Total Knee Replacement, [id number] Referrals: Keon Gallardo PA-C [Primary Care Provider] - 12/11/16 1:00 pm (Please check-in at 12:45pm.) Romi Licona PA-C [Physician Plant Worker] - 12/03/16 3:15 pm (Appointment with Romi on December 03, 2016 at 3:15pm. Appointment with Romi on December 10, 2016 at 1:15pm.) - Patient Data Vitals - Most Recent: Last Vital Signs Temp 97.3 F 11/26/16 09:15 Pulse 72 11/26/16 09:15 Resp 16 11/26/16 09:15 BP 115/66 11/26/16 09:15 Pulse Ox 91 L 11/26/16 09:15 Weight - Most Recent: 163 lb 8 oz I&O - Last 24 hours: Intake & Output 11/25/16 11/26/16 11/26/16 22:59 06:59 14:59 Intake Total 840 400 Output Total 400 300 Balance 440 100 Lab Results - Last 24 hrs: Laboratory Results - last 24 hr 11/26/16 11/26/16 Range/Units 08:15 08:15 WBC 10.46 H (3.98-10.04) K/mm3 RBC 3.94 L (3.98-5.22) M/mm3 Hgb 10.8 L (11.2-15.7) gm/L Hct 33.8 L (34.1-44.9) % MCV 85.8 (79.4-94.8) fl MCH 27.4 (25.6-32.2) pg MCHC 32.0 L (32.2-35.5) g/dl RDW Std Deviation 45.7 (36.4-46.3) fL Plt Count 219 (182-369) K/mm3 MPV 10.2 (9.4-12.3) fl Neut % (Auto) 56.4 (34.0-71.1) % Lymph % (Auto) 23.1 (19.3-51.7) % Grundy % (Auto) 9.4 (4.7-12.5) % Eos % (Auto) 10.3 H (0.7-5.8) Baso % (Auto) 0.5 (0.1-1.2) % Neut # (Auto) 5.90 (1.56-6.13) K/mm3 Lymph # (Auto) 2.42 (1.18-3.74) K/mm3 [place]undy # (Auto) 0.98 H (0.24-0.36) K/mm3 Eos # (Auto) 1.08 H (0.04-0.36) K/mm3 Baso # (Auto) 0.05 (0.01-0.08) K/mm3 Sodium 139 (136-145) mEq/L Potassium 3.2 L (3.5-5.1) mEq/L Chloride 104 (98-107) mEq/L Carbon Dioxide 30 (21-32) mEq/L Anion Gap 8.2 (5-15) BUN 13 (7-18) mg/dL Creatinine 0.9 (0.55-1.02) mg/dL Est Cr Clr Drug Dosing 41.78 mL/min Estimated GFR (MDRD) > 60 (>60) mL/min BUN/Creatinine Ratio 14.4 (14-18) Glucose 111 (80-115) mg/dL Calcium 8.6 (8.5-10.1) mg/dL Magnesium 1.9 (1.8-2.4) mg/dl Med Orders - Current: Current Medications Aspirin (Ecotrin) 325 mg PO BID [facility] Last Admin: 11/26/16 09:03 Dose: 325 mg Atenolol (Tenormin) 25 mg PO DAILY [facility] Last Admin: 11/26/16 09:15 Dose: 25 mg Bisacodyl (Dulcolax) 5 mg PO DAILY PRN PRN Reason: Constipation Last Admin: 11/25/16 17:18 Dose: 5 mg Cyclobenzaprine HCl (Flexeril) 10 mg PO TID PRN PRN Reason: Spasms Last Admin: 11/26/16 09:04 Dose: 10 mg Diphenhydramine HCl (Benadryl) 25 mg IVPUSH Q4H PRN PRN Reason: Nausea Docusate Sodium (Colace) 100 mg PO BID [facility] Last Admin: 11/26/16 09:04 Dose: 100 mg Famotidine (Pepcid) 20 mg PO DAILY [facility] Last Admin: 11/26/16 09:04 Dose: 20 mg Hydrochlorothiazide (Hydrochlorothiazide) 25 mg PO DAILY [facility] Last Admin: 11/26/16 09:04 Dose: 25 mg Lisinopril (Prinivil) 40 mg PO DAILY [facility] Last Admin: 11/26/16 09:15 Dose: 40 mg Magnesium Hydroxide (Milk Of Magnesia) 30 ml PO BID PRN PRN Reason: Constipation Morphine Sulfate (Morphine) 2 mg IVPUSH Q2H PRN PRN Reason: Breakthrough Pain Last Admin: 11/25/16 00:00 Dose: 2 mg Multivitamins (Thera) 1 each PO WITHBREAKFAST [facility] Last Admin: 11/26/16 06:02 Dose: 1 each Ondansetron HCl (Zofran) 4 mg IVPUSH Q6H PRN PRN Reason: Nausea/Vomiting Oxycodone/Acetaminophen (Percocet 325-5 Mg) 1 - 2 tab PO Q4H PRN PRN Reason: Pain Last Admin: 11/26/16 10:08 Dose: 2 tab Senna (Senna) 8.6 mg PO BID PRN PRN Reason: Constipation Discontinued Medications Albuterol (Proventil Hfa) Confirm Administered Dose 6.7 gm INH .STK-MED ONE Stop: 11/24/16 13:11 Atenolol (Tenormin) 25 mg PO BID [facility] Last Admin: 11/25/16 20:42 Dose: 25 mg Bupivacaine HCl (Marcaine 0.25%) Confirm Administered Dose 30 ml .ROUTE .STK- MED ONE Stop: 11/24/16 09:33 Last Admin: 11/24/16 12:32 Dose: 30 ml Cefazolin Sodium (Ancef) Confirm Administered Dose 2 gm .ROUTE .STK-MED ONE Stop: 11/24/16 09:33 Last Admin: 11/24/16 12:29 Dose: 2 gm Cefazolin Sodium (Ancef) Confirm Administered Dose 2 gm .ROUTE .STK-MED ONE Stop: 11/24/16 10:57 Morphine Sulfate 8 mg/Epinephrine HCl 0.3 mg/Cefuroxime Sodium 750 mg/Ketorolac Tromethamine 30 mg/Sodium Chloride 27.9 ml 0 mg .XX ONETIME ONE Stop: 11/24/16 10:31 Last Admin: 11/24/16 12:31 Dose: 788.3 mg Diphenhydramine HCl (Benadryl) 25 mg IVPUSH Q6H PRN PRN Reason: pruritis Ephedrine Sulfate (Ephedrine In Ns) Confirm Administered Dose 25 mg .ROUTE .STK- MED ONE Stop: 11/24/16 11:26 Ephedrine Sulfate (Ephedrine In Ns) Confirm Administered Dose 25 mg .ROUTE .STK- MED ONE Stop: 11/24/16 11:33 Ephedrine Sulfate (Ephedrine In Ns) Confirm Administered Dose 50 mg .ROUTE .STK- MED ONE Stop: 11/24/16 12:32 Famotidine (Pepcid) 20 mg PO BID [facility] Last Admin: 11/25/16 09:25 Dose: Not Given Fentanyl (Sublimaze) Confirm Administered Dose 250 mcg .ROUTE .STK-MED ONE Stop: 11/24/16 10:55 Fentanyl (Sublimaze) Confirm Administered Dose 100 mcg .ROUTE .STK-MED ONE Stop: 11/24/16 13:27 Last Admin: 11/25/16 07:38 Dose: Not Given Fentanyl (Sublimaze) 50 mcg IVPUSH Q5M PRN PRN Reason: Pain Stop: 11/24/16 18:00 Last Admin: 11/24/16 13:41 Dose: 50 mcg Fentanyl (Sublimaze) Confirm Administered Dose 100 mcg .ROUTE .STK-MED ONE Stop: 11/24/16 13:36 Last Admin: 11/24/16 17:17 Dose: Not Given Glycopyrrolate () Confirm Administered Dose 1 mg .ROUTE .STK-MED ONE Stop: 11/24/16 12:37 Hydromorphone HCl (Dilaudid) Confirm Administered Dose 1 mg .ROUTE .STK-MED ONE Stop: 11/24/16 11:55 Hydromorphone HCl (Dilaudid) 0.5 mg IVPUSH Q15M PRN PRN Reason: severe pain Stop: 11/24/16 14:46 Last Admin: 11/24/16 14:05 Dose: 0.5 mg Lactated Ringer's (Ringers, Lactated) 1,000 mls @ 125 mls/hr IV ASDIRECTED [facility] Stop: 11/24/16 23:00 Last Admin: 11/24/16 09:35 Dose: 125 mls/hr Cefazolin Sodium/Dextrose 2 gm (/ Premix) 50 mls @ 100 mls/hr IV Q8H [facility] Stop: 11/25/16 10:29 Last Admin: 11/25/16 09:20 Dose: 100 mls/hr Lidocaine HCl (Xylocaine-Mpf 1%) Confirm Administered Dose 6 mls @ as directed .ROUTE .STK-MED ONE Stop: 11/24/16 10:56 Lactated Ringer's (Ringers, Lactated) Confirm Administered Dose 3,000 mls @ as directed .ROUTE .STK-MED ONE Stop: 11/24/16 13:51 Iodine (Iodine 2% Mild Tincture) Confirm Administered Dose 30 ml .ROUTE .STK- MED ONE Stop: 11/24/16 09:33 Last Admin: 11/24/16 12:28 Dose: 30 ml Ketamine HCl (Ketalar) Confirm Administered Dose 500 mg .ROUTE .STK-MED ONE Stop: 11/24/16 12:39 Ketorolac Tromethamine (Toradol) Confirm Administered Dose 30 mg .ROUTE .STK- MED ONE Stop: 11/24/16 13:20 Lidocaine/Sodium Bicarbonate (Buffered Lidocaine 1% In Ns 8.4%) 0.25 ml .XX ONETIME PRN PRN Reason: Prior to IV Start Stop: 11/24/16 18:00 Last Admin: 11/24/16 09:34 Dose: 0.25 ml Naloxone HCl (Narcan) 0.1 mg IVPUSH Q5M PRN PRN Reason: Oversedation Stop: 11/24/16 13:16 Neostigmine Methylsulfate (Neostigmine) Confirm Administered Dose 5 mg .ROUTE .STK-MED ONE Stop: 11/24/16 12:37 Ondansetron HCl (Zofran) Confirm Administered Dose 4 mg .ROUTE .STK-MED ONE Stop: 11/24/16 12:38 Ondansetron HCl (Zofran) 4 mg IVPUSH ONETIME PRN PRN Reason: Nausea/Vomiting Stop: 11/24/16 18:00 Potassium Chloride (Klor-Con M20) 40 meq PO ONETIME ONE Stop: 11/25/16 09:37 Last Admin: 11/25/16 10:05 Dose: 40 meq Propofol (Diprivan 20 Ml) Confirm Administered Dose 200 mg .ROUTE .STK-MED ONE Stop: 11/24/16 10:55 Sodium Chloride (Saline Flush) 10 ml FLUSH ASDIRECTED PRN PRN Reason: Keep Vein Open Stop: 11/24/16 18:00 Tranexamic Acid (Cyklokapron) Confirm Administered Dose 1,000 mg .ROUTE .STK- MED ONE Stop: 11/24/16 09:33 Last Admin: 11/24/16 12:36 Dose: 1,000 mg *Q Meaningful Use (DIS) - VTE *Q VTE Criteria *Q: - Stroke *Q Stroke Criteria *Q: - AMI *Q AMI Criteria *Q:
[2016-11-26] MEDS ORDERED: Diphtheria,Pertussis(Acell),Tetanus Vaccine 0.5 ML SDV IM ONE (12:30)
[2016-11-26] MEDS ORDERED: Pneumococcal 13-Valent Conjugate Vaccine 0.5 ML Syringe IM ONE (12:30)
== END 2016-11-26 13:02 | disposition home or self-care (01) | DRG 470 ==
LOC: JD.MS 08:55
PROVIDERS: ADMIT Orthopaedic Surgery; ATTEND Orthopaedic Surgery
PROC: 0SRC0J9 Replacement of Right Knee Joint with Synthetic Substitute, Cemented, Open Approach (ICD-10-PCS; principal; 2016-11-24)
DX: M17.11 Unilateral primary osteoarthritis, right knee (principal); I10 Essential (primary) hypertension; M85.80 Other specified disorders of bone density and structure, unspecified site; E66.9 Obesity, unspecified; M81.0 Age-related osteoporosis without current pathological fracture; R73.03 Prediabetes; F17.210 Nicotine dependence, cigarettes, uncomplicated; Z90.710 Acquired absence of both cervix and uterus; Z68.39 Body mass index [BMI] 39.0-39.9, adult; Z79.82 Long term (current) use of aspirin; Z23 Encounter for immunization
CPT/HCPCS: 01402; 36415; 73560-26-RT; 73560-RT; 80048; 80053; 83735; 85025; 87641; 90670; 90715; 97110-GP; 97116-GP; 97161-GP; 97165-GO; 97535-GO; A9270-GY; C1713; C1776; G0009; J0171; J0690; J0697; J1170; J1885; J2270; J2405; J2704; J2710; J3010; J3490; J7050; J7120